=== PATIENT | female | born 1985 | race Caucasian/White ===

== ENCOUNTER 2018-08-21 02:51 | Inpatient (IN) | payer BC ==
[2018-08-21] MEDS ORDERED: Nalbuphine 20 MG/ML 1 ML Syringe IVPUSH PRN (03:11)
[2018-08-21] MEDS ORDERED: Sodium Chloride 0.9% 10 ML Syringe FLUSH PRN (03:11)
[2018-08-21] MEDS ORDERED: Ondansetron 4 MG/2 ML SDV IVPUSH PRN ×3 (03:11→19:28)
[2018-08-21] MEDS ORDERED: Oxytocin/Lactated Ringers 10 UNIT/1,000 ML BAG IV SCH (03:15)
[2018-08-21] MEDS ORDERED: Ampicillin 2 GM in Sodium Chloride 0.9% 100 ML IV ONE (04:00)
[2018-08-21] MEDS: Lactated Ringers 1,000 ML IV SCH ×4 (04:07→17:16)
--- NOTE | 2018-08-21 04:23 | PCM.LDHP ---
L&D History of Present Illness - General Date of Service: 08/21/18 Admit Problem/Dx: Patient Status Order with Admit Dx/Problem 08/21/18 03:11 Patient Status [ADT] Routine Admission Diagnosis/Problem Admission Diagnosis/Problem Source of Information: Patient History Limitations: Reports: No Limitations - History of Present Illness Introduction:: Patient is a 32 y/o at 39 1/7 wks who presents in labor. Contractions started intermittently a few days ago, but really only became patterned after midnight. No LOF. No other concerns. 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: : 2 Para: 1 LMP (Approximate): - Past Surgical History Female Surgical History: Reports: Section Musculoskeletal Surgical History: Reports: Arthroscopic Knee Social & Family History - Tobacco Use Smoking Status *Q: Never Smoker - Alcohol Use Alcohol Use History: No - Recreational Drug Use Recreational Drug Use: No H&P Review of Systems - Review of Systems: Review Of Systems: See Below General: Reports: No Symptoms Pulmonary: Reports: No Symptoms Cardiovascular: Reports: No Symptoms Gastrointestinal: Reports: No Symptoms Genitourinary: Reports: No Symptoms Musculoskeletal: Reports: No Symptoms Neurological: Reports: No Symptoms L&D Exam - Exam Exam: See Below - Vital Signs Vital Signs: Last Vital Signs Temp 37.0 C 08/21/18 03:11 Pulse 87 08/21/18 03:11 Resp 16 08/21/18 03:11 BP 127/87 08/21/18 03:11 Pulse Ox 98 08/21/18 03:11 Weight: 69.853 kg - OB Specific Contraction Intensity: Moderate Movement: Active Heart Tones: Present Heart Tones per Min: 140 Heart Rate (FHR) Variability: Moderate (6-25 bmp) Presentation: Vertex - Momin Score Momin Score Cervix Position: Posterior Momin Score Consistency: Soft Momin Score Effacement: >80% Momin Score Dilation: 1-2 cm Momin Score 's Station: -1 ,0 Momin Score Total: 8 - Exam General: Alert, Oriented, Cooperative Lungs: Clear to Auscultation, Normal Respiratory Effort Cardiovascular: Regular Rate, Regular Rhythm GI/Abdominal Exam: Soft, Non-Tender Genitourinary: Normal external exam Extremities: Normal Inspection Skin: Warm, Dry, Intact - Patient Data Lab Results Last 24 hrs: Laboratory Results - last 24 hr 08/21/18 Range/Units 03:35 WBC 11.42 H (3.98-10.04) K/mm3 RBC 4.05 (3.98-5.22) M/mm3 Hgb 12.6 (11.2-15.7) gm/L Hct 36.7 (34.1-44.9) % MCV 90.6 (79.4-94.8) fl MCH 31.1 (25.6-32.2) pg MCHC 34.3 (32.2-35.5) g/dl RDW Std Deviation 41.9 (36.4-46.3) fL Plt Count 240 (182-369) K/mm3 MPV 10.0 (9.4-12.3) fl Neut % (Auto) 87.3 H (34.0-71.1) % Lymph % (Auto) 8.2 L (19.3-51.7) % [place] % (Auto) 4.0 L (4.7-12.5) % Eos % (Auto) 0.1 L (0.7-5.8) Baso % (Auto) 0.1 (0.1-1.2) % Neut # (Auto) 9.97 H (1.56-6.13) K/mm3 Lymph # (Auto) 0.94 L (1.18-3.74) K/mm3 [place] # (Auto) 0.46 H (0.24-0.36) K/mm3 Eos # (Auto) 0.01 L (0.04-0.36) K/mm3 Baso # (Auto) 0.01 (0.01-0.08) K/mm3 Result Diagrams: 08/22/18 12:50 - Problem List (1) 39 weeks gestation of SNOMED Code(s): 81703116 ICD Code: Z3A.39 - 39 WEEKS GESTATION OF Status: Acute Current Visit: Yes (2) History of SNOMED Code(s): 969774543 ICD Code: Z98.891 - HISTORY OF UTERINE SCAR FROM PREVIOUS SURGERY Status: Acute Current Visit: Yes (3) Desires (vaginal after ) trial SNOMED Code(s): 449447690, 332587034 ICD Code: O34.219 - MATERNAL CARE FOR UNSP TYPE SCAR FROM PREVIOUS DEL Status: Acute Current Visit: Yes (4) Group 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, +RV culture, currently SNOMED Code(s): 8427927441705, 519215488, 3789067395081 ICD Code: O99.820 - STREPTOCOCCUS B CARRIER STATE COMPLICATING Status: Acute Current Visit: No Problem List Initiated/Reviewed/Updated: Yes Orders Last 24hrs: Active Orders 24 hr Category Date Time Status Patient Status [ADT] Routine ADT 08/21/18 03:11 Active Activity as Tolerated [RC] PFP Care 08/21/18 03:11 Active Communication Order [RC] ASDIRECTED Care 08/21/18 03:11 Active Heart Tones [RC] ASDIRECTED Care 08/21/18 03:12 Active Non Stress Test [RC] PER UNIT ROUTINE Care 08/21/18 03:11 Active Notify Provider [RC] PFP Care 08/21/18 03:11 Active Notify Provider [RC] PRN Care 08/21/18 03:11 Active Peripheral IV Care [RC] . DIRECTED Care 08/21/18 03:12 Active Vital Signs [RC] PER UNIT ROUTINE Care 08/21/18 03:11 Active CBC WITH AUTO DIFF [HEME] Stat Lab 08/21/18 03:35 Results RAPID PLASMA REAGIN,RPR [CHEM] Routine Lab 08/21/18 03:35 Received TYPE AND SCREEN [BBK] Stat Lab 08/21/18 03:35 Received Ampicillin 1 gm Med 08/21/18 08:00 Active Sodium Chloride 0.9% [Normal Saline] 100 ml IV Q4H Ampicillin 2 gm Med 08/21/18 04:00 Active Sodium Chloride 0.9% [Normal Saline] 100 ml IV ONETIME Lactated Ringers [Ringers, Lactated] 1,000 ml Med 08/21/18 03:15 Active IV ASDIRECTED Nalbuphine [Nubain] Med 08/21/18 03:11 Active 10 mg IVPUSH Q2H PRN Ondansetron [Zofran] Med 08/21/18 03:11 Active 4 mg IVPUSH Q4H PRN Oxytocin/Lactated Ringers [Pitocin in LR 10 Units/1,000 Med 08/21/18 03:15 Active ML] 10 unit in 1,000 ml IV .CONTINUOUS Sodium Chloride 0.9% [Saline Flush] Med 08/21/18 03:11 Active 10 ml FLUSH ASDIRECTED PRN Electronic Heart Tones Ext w TOCO [WOMSER] Oth 08/21/18 03:11 Ordered Routine Electronic Heart Tones Internal [WOMSER] Per Unit Oth 08/21/18 03:11 Ordered Routine Peripheral IV Insertion Adult [OM.PC] Routine Oth 08/21/18 03:11 Ordered Resuscitation Status Routine Resus Stat 08/21/18 03:11 Ordered Medication Orders Lactated Ringer's (Ringers, Lactated) 1,000 mls @ 100 mls/hr IV ASDIRECTED BECKY Last Admin: 08/21/18 04:07 Dose: 100 mls/hr Oxytocin/Lactated Ringer's (Pitocin In Lr 10 Units/1,000 Ml) 10 unit in 1,000 mls @ 500 mls/hr IV .CONTINUOUS BECKY Ampicillin Sodium 2 gm/ Sodium (Chloride) 100 mls @ 200 mls/hr IV ONETIME ONE Stop: 08/21/18 04:29 Last Admin: 08/21/18 04:07 Dose: 200 mls/hr Ampicillin Sodium 1 gm/ Sodium (Chloride) 100 mls @ 200 mls/hr IV Q4H BECKY Nalbuphine HCl (Nubain) 10 mg IVPUSH Q2H PRN PRN Reason: pain Ondansetron HCl (Zofran) 4 mg IVPUSH Q4H PRN PRN Reason: Nausea/Vomiting Sodium Chloride (Saline Flush) 10 ml FLUSH ASDIRECTED PRN PRN Reason: Keep Vein Open Assessment/Plan Comment:: 32 y/o at 39 1/7 wks presents in early labor. Has a history of c- section with her first due to IUGR/NRFS. Desires TOLAC * Labs * GBS positive, will start Ampicillin * Pain management per patient preference * Aware of risks/benefits of TOLAC * Anticipate
[2018-08-21] MEDS ORDERED: ePHEDrine 50 MG/ML SDV IVPUSH PRN ×3 (07:12→21:27)
[2018-08-21] MEDS ORDERED: fentaNYL 100 MCG/2 ML SDV EPIDUR PRN (07:12)
--- NOTE | 2018-08-21 07:14 | PCM.PREANE ---
Preanesthetic Assessment - Anesthesia/Transfusion/Family Hx Anesthesia History: Prior Anesthesia Without Reaction Family History of Anesthesia Reaction: No Transfusion History: No Prior Transfusion(s) Intubation History: Unknown - Physical Assessment NPO Status Date: 08/21/18 Pulse: 87 O2 Sat by Pulse Oximetry: 98 Respiratory Rate: 16 Blood Pressure: 127/87 Temperature: 37 C Vital Signs: Last Vital Signs Temp 37.0 C 08/21/18 03:11 Pulse 87 08/21/18 03:11 Resp 16 08/21/18 03:11 BP 127/87 08/21/18 03:11 Pulse Ox 98 08/21/18 03:11 Height: 1.65 m Weight: 69.853 kg ASA Class: 2 Mental Status: Alert & Oriented x3 - Lab Values: Laboratory Last Values WBC 11.42 K/mm3 (3.98-10.04) H 08/21/18 03:35 RBC 4.05 M/mm3 (3.98-5.22) 08/21/18 03:35 Hgb 12.6 gm/L (11.2-15.7) 08/21/18 03:35 Hct 36.7 % (34.1-44.9) 08/21/18 03:35 MCV 90.6 fl (79.4-94.8) 08/21/18 03:35 MCH 31.1 pg (25.6-32.2) 08/21/18 03:35 MCHC 34.3 g/dl (32.2-35.5) 08/21/18 03:35 RDW Std Deviation 41.9 fL (36.4-46.3) 08/21/18 03:35 Plt Count 240 K/mm3 (182-369) 08/21/18 03:35 MPV 10.0 fl (9.4-12.3) 08/21/18 03:35 Neut % (Auto) 87.3 % (34.0-71.1) H 08/21/18 03:35 Lymph % (Auto) 8.2 % (19.3-51.7) L 08/21/18 03:35 [place] % (Auto) 4.0 % (4.7-12.5) L 08/21/18 03:35 Eos % (Auto) 0.1 (0.7-5.8) L 08/21/18 03:35 Baso % (Auto) 0.1 % (0.1-1.2) 08/21/18 03:35 Neut # (Auto) 9.97 K/mm3 (1.56-6.13) H 08/21/18 03:35 Lymph # (Auto) 0.94 K/mm3 (1.18-3.74) L 08/21/18 03:35 [place] # (Auto) 0.46 K/mm3 (0.24-0.36) H 08/21/18 03:35 Eos # (Auto) 0.01 K/mm3 (0.04-0.36) L 08/21/18 03:35 Baso # (Auto) 0.01 K/mm3 (0.01-0.08) 08/21/18 03:35 Manual Slide Review Abnormal smear 08/21/18 03:35 Blood Type A POSITIVE 08/21/18 03:35 Gel Antibody Screen Negative 08/21/18 03:35 Above labs reviewed and noted and within acceptable ranges to proceed with epidural if desired. 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 OB/BYN History: IUGR current - Past Surgical History Female Surgical History: Reports: Section Musculoskeletal Surgical History: Reports: Arthroscopic Knee - SUBSTANCE USE Smoking Status *Q: Never Smoker Second Hand Smoke Exposure: No Recreational Drug Use History: No - HOME MEDS Home Medications: Home Meds Vits #93/Iron Fum/FA [ Formula Tablet] 1 each PO DAILY [History] Acetaminophen [Tylenol] 650 mg PO Q4H PRN #0 tablet 11/20/15 [Rx] Docusate Sodium [Colace] 100 mg PO Q12H PRN #0 cap 11/20/15 [Rx] Aspirin 81 mg PO DAILY 08/21/18 [History] - CURRENT (IN HOUSE) MEDS Current Meds: Current Medications Lactated Ringer's (Ringers, Lactated) 1,000 mls @ 100 mls/hr IV ASDIRECTED BECKY Last Admin: 08/21/18 04:07 Dose: 100 mls/hr Oxytocin/Lactated Ringer's (Pitocin In Lr 10 Units/1,000 Ml) 10 unit in 1,000 mls @ 500 mls/hr IV .CONTINUOUS BECKY Ampicillin Sodium 1 gm/ Sodium (Chloride) 100 mls @ 200 mls/hr IV Q4H BECKY Nalbuphine HCl (Nubain) 10 mg IVPUSH Q2H PRN PRN Reason: pain Ondansetron HCl (Zofran) 4 mg IVPUSH Q4H PRN PRN Reason: Nausea/Vomiting Sodium Chloride (Saline Flush) 10 ml FLUSH ASDIRECTED PRN PRN Reason: Keep Vein Open Discontinued Medications Ampicillin Sodium 2 gm/ Sodium (Chloride) 100 mls @ 200 mls/hr IV ONETIME ONE Stop: 08/21/18 04:29 Last Admin: 08/21/18 04:07 Dose: 200 mls/hr
[2018-08-21] MEDS ORDERED: Bupivacaine/fentaNYL/NS 100 ML Bag EPIDUR SCH (07:15)
[2018-08-21] MEDS: Ampicillin 1 GM in Sodium Chloride 0.9% 100 ML IV SCH ×4 (07:51→23:46)
--- NOTE | 2018-08-21 10:44 | PCM.PREANE ---
Preanesthetic Assessment - Anesthesia/Transfusion/Family Hx Anesthesia History: Prior Anesthesia Without Reaction Family History of Anesthesia Reaction: No Transfusion History: No Prior Transfusion(s) Intubation History: Unknown - Review of Systems General: No Symptoms Pulmonary: No Symptoms Cardiovascular: No Symptoms Gastrointestinal: No Symptoms Neurological: No Symptoms (motion sickness), Headache (migraines) Other: Reports: None - Physical Assessment NPO Status Date: 08/21/18 NPO Status Time: 10:00 Pulse: 87 O2 Sat by Pulse Oximetry: 98 Respiratory Rate: 16 Blood Pressure: 127/87 Temperature: 37 C Vital Signs: Last Vital Signs Temp 37 C 08/21/18 07:14 Pulse 87 08/21/18 07:14 Resp 16 08/21/18 07:14 BP 127/87 08/21/18 07:14 Pulse Ox 98 08/21/18 07:14 Height: 1.65 m Weight: 69.853 kg ASA Class: 2 Mental Status: Alert & Oriented x3 Airway Class: Mallampati = 2 Dentition: Reports: Normal Dentition, Caries Thyro-Mental Finger Breadths: 3 Mouth Opening Finger Breadths: 3 ROM/Head Extension: Full Lungs: Clear to Auscultation, Normal Respiratory Effort Cardiovascular: Regular Rate, Regular Rhythm, No Murmurs - Lab Values: Laboratory Last Values WBC 11.42 K/mm3 (3.98-10.04) H 08/21/18 03:35 RBC 4.05 M/mm3 (3.98-5.22) 08/21/18 03:35 Hgb 12.6 gm/L (11.2-15.7) 08/21/18 03:35 Hct 36.7 % (34.1-44.9) 08/21/18 03:35 MCV 90.6 fl (79.4-94.8) 08/21/18 03:35 MCH 31.1 pg (25.6-32.2) 08/21/18 03:35 MCHC 34.3 g/dl (32.2-35.5) 08/21/18 03:35 RDW Std Deviation 41.9 fL (36.4-46.3) 08/21/18 03:35 Plt Count 240 K/mm3 (182-369) 08/21/18 03:35 MPV 10.0 fl (9.4-12.3) 08/21/18 03:35 Neut % (Auto) 87.3 % (34.0-71.1) H 08/21/18 03:35 Lymph % (Auto) 8.2 % (19.3-51.7) L 08/21/18 03:35 [place] % (Auto) 4.0 % (4.7-12.5) L 08/21/18 03:35 Eos % (Auto) 0.1 (0.7-5.8) L 08/21/18 03:35 Baso % (Auto) 0.1 % (0.1-1.2) 08/21/18 03:35 Neut # (Auto) 9.97 K/mm3 (1.56-6.13) H 08/21/18 03:35 Lymph # (Auto) 0.94 K/mm3 (1.18-3.74) L 08/21/18 03:35 [place] # (Auto) 0.46 K/mm3 (0.24-0.36) H 08/21/18 03:35 Eos # (Auto) 0.01 K/mm3 (0.04-0.36) L 08/21/18 03:35 Baso # (Auto) 0.01 K/mm3 (0.01-0.08) 08/21/18 03:35 Manual Slide Review Abnormal smear 08/21/18 03:35 Blood Type A POSITIVE 08/21/18 03:35 Gel Antibody Screen Negative 08/21/18 03:35 All labs reviewed and noted and within acceptable ranges to proceed with epidural if desired. - Allergies Allergies/Adverse Reactions: Allergies Allergy/AdvReac Type Severity Reaction Status Date / Time No Known Allergies Allergy Verified 08/21/18 03:11 - Anesthesia Plan Pre-Op Medication Ordered: None - Acknowledgements Anesthesia Type Planned: Epidural Pt an Appropriate Candidate for the Planned Anesthesia: Yes Alternatives and Risks of Anesthesia Discussed w Pt/Guardian: Yes Pt/Guardian Understands and Agrees with Anesthesia Plan: Yes PreAnesthesia Questionnaire - Past Health History Medical/Surgical History: Denies Medical/Surgical History Cardiovascular History: Reports: Other (See Below) (Preeclampsia - 1st preganncy ) 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 OB/BYN History: IUGR current - Past Surgical History Female Surgical History: Reports: Section Musculoskeletal Surgical History: Reports: Arthroscopic Knee - SUBSTANCE USE Smoking Status *Q: Never Smoker Second Hand Smoke Exposure: No Recreational Drug Use History: No - HOME MEDS Home Medications: Home Meds Vits #93/Iron Fum/FA [ Formula Tablet] 1 each PO DAILY [History] Acetaminophen [Tylenol] 650 mg PO Q4H PRN #0 tablet 11/20/15 [Rx] Docusate Sodium [Colace] 100 mg PO Q12H PRN #0 cap 11/20/15 [Rx] Aspirin 81 mg PO DAILY 08/21/18 [History] - CURRENT (IN HOUSE) MEDS Current Meds: Current Medications Ephedrine Sulfate (Ephedrine Sulfate) 5 mg IVPUSH ASDIRECTED PRN PRN Reason: Hypotension Fentanyl (Sublimaze) 100 mcg EPIDUR Q3H PRN PRN Reason: Pain Fentanyl/Bupivacaine HCl (Fentanyl/Bupivacaine/Ns 2 Mcg-0.125% 100 Ml) 100 ml EPIDUR ASDIRECTED BECKY Lactated Ringer's (Ringers, Lactated) 1,000 mls @ 100 mls/hr IV ASDIRECTED BECKY Last Admin: 08/21/18 04:07 Dose: 100 mls/hr Oxytocin/Lactated Ringer's (Pitocin In Lr 10 Units/1,000 Ml) 10 unit in 1,000 mls @ 500 mls/hr IV .CONTINUOUS [facility] Ampicillin Sodium 1 gm/ Sodium (Chloride) 100 mls @ 200 mls/hr IV Q4H [facility] Last Admin: 08/21/18 07:51 Dose: 200 mls/hr Nalbuphine HCl (Nubain) 10 mg IVPUSH Q2H PRN PRN Reason: pain Ondansetron HCl (Zofran) 4 mg IVPUSH Q4H PRN PRN Reason: Nausea/Vomiting Ondansetron HCl (Zofran) 4 mg IVPUSH ONETIME PRN PRN Reason: Nausea/Vomiting Sodium Chloride (Saline Flush) 10 ml FLUSH ASDIRECTED PRN PRN Reason: Keep Vein Open Discontinued Medications Ampicillin Sodium 2 gm/ Sodium (Chloride) 100 mls @ 200 mls/hr IV ONETIME ONE Stop: 08/21/18 04:29 Last Admin: 08/21/18 04:07 Dose: 200 mls/hr
[2018-08-21] MEDS ORDERED: fentaNYL/Bupivacaine-NS 2 MCG/ML-0.125%/PF 100 ML Bag EPIDUR SCH (15:15)
--- NOTE | 2018-08-21 17:10 | PCM.PNLD ---
Labor Progress Note - VS & Meds Vital Signs: Last Vital Signs Temp 37 C 08/21/18 10:49 Pulse 87 08/21/18 10:49 Resp 16 08/21/18 10:49 BP 127/87 08/21/18 10:49 Pulse Ox 98 08/21/18 10:49 Active Medications: Current Medications Ephedrine Sulfate (Ephedrine Sulfate) 5 mg IVPUSH ASDIRECTED PRN PRN Reason: Hypotension Fentanyl (Sublimaze) 100 mcg EPIDUR Q3H PRN PRN Reason: Pain Last Admin: 08/21/18 15:43 Dose: 100 mcg Fentanyl/Bupivacaine HCl (Mflheulb-Rgqrg-Al 2 Mcg/Ml-0.125%) 100 ml EPIDUR ASDIRECTED BECKY Last Admin: 08/21/18 15:45 Dose: 100 ml Lactated Ringer's (Ringers, Lactated) 1,000 mls @ 100 mls/hr IV ASDIRECTED BECKY Last Admin: 08/21/18 16:04 Dose: 100 mls/hr Oxytocin/Lactated Ringer's (Pitocin In Lr 10 Units/1,000 Ml) 10 unit in 1,000 mls @ 500 mls/hr IV .CONTINUOUS [facility] Ampicillin Sodium 1 gm/ Sodium (Chloride) 100 mls @ 200 mls/hr IV Q4H [facility] Last Admin: 08/21/18 16:02 Dose: 200 mls/hr Nalbuphine HCl (Nubain) 10 mg IVPUSH Q2H PRN PRN Reason: pain Ondansetron HCl (Zofran) 4 mg IVPUSH Q4H PRN PRN Reason: Nausea/Vomiting Ondansetron HCl (Zofran) 4 mg IVPUSH ONETIME PRN PRN Reason: Nausea/Vomiting Sodium Chloride (Saline Flush) 10 ml FLUSH ASDIRECTED PRN PRN Reason: Keep Vein Open Discontinued Medications Fentanyl/Bupivacaine HCl (Fentanyl/Bupivacaine/Ns 2 Mcg-0.125% 100 Ml) 100 ml EPIDUR ASDIRECTED [facility] Ampicillin Sodium 2 gm/ Sodium (Chloride) 100 mls @ 200 mls/hr IV ONETIME ONE Stop: 08/21/18 04:29 Last Admin: 08/21/18 04:07 Dose: 200 mls/hr - Uterine Contractions Uterine Monitoring Mode: External [place] Contraction Intensity: Moderate to Strong - Monitoring Monitor Mode: External Ultrasound Heart Rate (FHR) Baseline: 130 Heart Rate (FHR) Variability: Moderate (6-25 bmp) Accelerations: Present, 15x15 Decelerations: Late (isolated after epidural) Strip Review: Category II - Vaginal Exam Dilation (cm): 5-6 Effacement (Percent): 80 Station: 0 Cervical Position: Midposition - Labor Progress (Free Text) Labor Progress: Doing well. Just received epidural. Feeling comfortable. Has continued to make change. Attempted to AROM, however, no BOW noted on exam
--- NOTE | 2018-08-21 17:13 | PCM.PNLD ---
Labor Progress Note - VS & Meds Vital Signs: Last Vital Signs Temp 37 C 08/21/18 10:49 Pulse 87 08/21/18 10:49 Resp 16 08/21/18 10:49 BP 127/87 08/21/18 10:49 Pulse Ox 98 08/21/18 10:49 Active Medications: Current Medications Ephedrine Sulfate (Ephedrine Sulfate) 5 mg IVPUSH ASDIRECTED PRN PRN Reason: Hypotension Fentanyl (Sublimaze) 100 mcg EPIDUR Q3H PRN PRN Reason: Pain Last Admin: 08/21/18 15:43 Dose: 100 mcg Fentanyl/Bupivacaine HCl (Blsdvkaz-Xseax-Gv 2 Mcg/Ml-0.125%) 100 ml EPIDUR ASDIRECTED BECKY Last Admin: 08/21/18 15:45 Dose: 100 ml Lactated Ringer's (Ringers, Lactated) 1,000 mls @ 100 mls/hr IV ASDIRECTED BECKY Last Admin: 08/21/18 16:04 Dose: 100 mls/hr Oxytocin/Lactated Ringer's (Pitocin In Lr 10 Units/1,000 Ml) 10 unit in 1,000 mls @ 500 mls/hr IV .CONTINUOUS [facility] Ampicillin Sodium 1 gm/ Sodium (Chloride) 100 mls @ 200 mls/hr IV Q4H [facility] Last Admin: 08/21/18 16:02 Dose: 200 mls/hr Nalbuphine HCl (Nubain) 10 mg IVPUSH Q2H PRN PRN Reason: pain Ondansetron HCl (Zofran) 4 mg IVPUSH Q4H PRN PRN Reason: Nausea/Vomiting Ondansetron HCl (Zofran) 4 mg IVPUSH ONETIME PRN PRN Reason: Nausea/Vomiting Sodium Chloride (Saline Flush) 10 ml FLUSH ASDIRECTED PRN PRN Reason: Keep Vein Open Discontinued Medications Fentanyl/Bupivacaine HCl (Fentanyl/Bupivacaine/Ns 2 Mcg-0.125% 100 Ml) 100 ml EPIDUR ASDIRECTED [facility] Ampicillin Sodium 2 gm/ Sodium (Chloride) 100 mls @ 200 mls/hr IV ONETIME ONE Stop: 08/21/18 04:29 Last Admin: 08/21/18 04:07 Dose: 200 mls/hr - Uterine Contractions Uterine Monitoring Mode: External [place] Contraction Intensity: Moderate to Strong - Monitoring Monitor Mode: External Ultrasound Heart Rate (FHR) Baseline: 140 Heart Rate (FHR) Variability: Moderate (6-25 bmp) Accelerations: Present, 15x15 Decelerations: None Strip Review: Category I - Vaginal Exam Dilation (cm): 4 Effacement (Percent): 80 Station: 0 Cervical Position: Posterior - Labor Progress (Free Text) Labor Progress: Doing well. Difficult to assess cervix due to very posterior position and patient discomfort. reviewed option for AROM, but would prefer to wait. Will assess again in a few hours
--- NOTE | 2018-08-21 18:01 | PCM.PNLD ---
Labor Progress Note - VS & Meds Vital Signs: Last Vital Signs Temp 37 C 08/21/18 10:49 Pulse 87 08/21/18 10:49 Resp 16 08/21/18 10:49 BP 127/87 08/21/18 10:49 Pulse Ox 98 08/21/18 10:49 Active Medications: Current Medications Ephedrine Sulfate (Ephedrine Sulfate) 5 mg IVPUSH ASDIRECTED PRN PRN Reason: Hypotension Fentanyl (Sublimaze) 100 mcg EPIDUR Q3H PRN PRN Reason: Pain Last Admin: 08/21/18 15:43 Dose: 100 mcg Fentanyl/Bupivacaine HCl (Jdmxlios-Kykde-Mk 2 Mcg/Ml-0.125%) 100 ml EPIDUR ASDIRECTED BECKY Last Admin: 08/21/18 15:45 Dose: 100 ml Lactated Ringer's (Ringers, Lactated) 1,000 mls @ 100 mls/hr IV ASDIRECTED BECKY Last Admin: 08/21/18 17:16 Dose: 100 mls/hr Oxytocin/Lactated Ringer's (Pitocin In Lr 10 Units/1,000 Ml) 10 unit in 1,000 mls @ 500 mls/hr IV .CONTINUOUS [facility] Ampicillin Sodium 1 gm/ Sodium (Chloride) 100 mls @ 200 mls/hr IV Q4H [facility] Last Admin: 08/21/18 16:02 Dose: 200 mls/hr Nalbuphine HCl (Nubain) 10 mg IVPUSH Q2H PRN PRN Reason: pain Ondansetron HCl (Zofran) 4 mg IVPUSH Q4H PRN PRN Reason: Nausea/Vomiting Ondansetron HCl (Zofran) 4 mg IVPUSH ONETIME PRN PRN Reason: Nausea/Vomiting Sodium Chloride (Saline Flush) 10 ml FLUSH ASDIRECTED PRN PRN Reason: Keep Vein Open Discontinued Medications Fentanyl/Bupivacaine HCl (Fentanyl/Bupivacaine/Ns 2 Mcg-0.125% 100 Ml) 100 ml EPIDUR ASDIRECTED [facility] Ampicillin Sodium 2 gm/ Sodium (Chloride) 100 mls @ 200 mls/hr IV ONETIME ONE Stop: 08/21/18 04:29 Last Admin: 08/21/18 04:07 Dose: 200 mls/hr - Uterine Contractions Uterine Monitoring Mode: External [place] Contraction Intensity: Moderate to Strong - Monitoring Monitor Mode: External Ultrasound Heart Rate (FHR) Baseline: 140 Heart Rate (FHR) Variability: Moderate (6-25 bmp) Accelerations: Present, 15x15 Decelerations: Prolonged (>2x10 min) (Patient with prolonged deceleration at 1744 down to 70's for 90 seconds ) Strip Review: Category III - Vaginal Exam Dilation (cm): 7-8 Effacement (Percent): 80 Station: 0 Cervical Position: Midposition - Labor Progress (Free Text) Labor Progress: heart rate recovered with position changes/IVF. Did make change from 5-6 to 7-8. Since FHR now reassuring will continue to monitor closely
[2018-08-21] MEDS ORDERED: Clindamycin Phosphate 900 MG in Sodium Chloride 0.9% 100 ML IV ONE ×2 (18:27→18:41)
[2018-08-21] MEDS ORDERED: Metoclopramide 10 MG/2 ML SDV IVPUSH ONE (18:30)
[2018-08-21] MEDS ORDERED: Citric Acid/Sodium Citrate Solution 30 ML Cup PO ONE (18:30)
--- NOTE | 2018-08-21 18:30 | PCM.SN ---
- Free Text/Narrative Note: At 1800 patient with shift up in baseline. Temperature now 100.8. Reviewed concerns for potential loss of station, chorioamnionitis. Reviewed we will need to start treating infection. Other than baseline in the 180's status reassuring with moderate variability. Reviewed different options of management and ultimately patient and would agree to a . Team notified Megan Oconnor MD
--- NOTE | 2018-08-21 18:32 | PCM.OPNOTE ---
- General Post-Op/Procedure Note Date of Surgery/Procedure: 08/21/18 Operative Procedure(s): Repeat - incision site ended up being high transverse with small, 2 cm, "T" extension Findings: Concern for possible uterine window, however, was area of brusied/elevated serosa. Thinning of lower uterine segment noted. Normal appearance of the ovaries and fallopian tubes. Baby Girl in a vertex presentation. APGARS of 8 & 9. Weight of 7 lbs 13 oz. Pre Op Diagnosis: 39 weeks of gestation. Attempted TOLAC. Chorioamniotis Post-Op Diagnosis: Same Anesthesia Technique: Epidural Primary Surgeon: Megan Oconnor Secondary Surgeon: Xiomara Franco Anesthesia Provider: Larisa Segura Reason Equity Analyst Was Necessary: No dedicated 1st assist. Speed/safety of procedure. Pathology: Cord gas segment obtained. Cord blood obtained. Placenta sent to pathology. Fluid Replacement, Intraop: 1,050 Output, Urine Amount: 125 EBL in mLs: 1,200 Complications: None Condition: Good Free Text/Narrative:: The risks, benefits, indications, potential complications, and alternatives were explained to the patient and informed consent obtained. After induction of anesthesia, the patient was placed in a supine position and then draped and prepped in the usual sterile manner. A Pfannenstiel incision was made and carried down through the subcutaneous tissue to the fascia. Fascial incision was made and extended transversely. The fascia was from the underlying rectus tissue superiorly and inferiorly. The peritoneum was identified and entered. Peritoneal incision was extended longitudinally. The utero-vesical peritoneal reflection was incised transversely and the bladder flap was bluntly freed from the lower uterine segment. There was thought to be an area of thinning/uterine window noted on the anterior surface of the uterus based on elevation of serosa with dark coloration underneath it. However. this dark discoloration ended up be more of a bruised/edematous layer of serosa. Unfortunately the muscle was thicker in this area and it was noted that uterine incision ended up being in a high transverse location. Baby noted to be straight OP. head delivered through hysterotomy, but there was difficulty delivering the shoulders. A small, ~2 cm, "T" incision was made superiorly. A baby girl was then able to be successfully delivered with APGARS as above. After the umbilical cord was clamped and cut a segment of cord was obtained for a cord gas. Cord blood then obtained. The placenta was removed intact and appeared normal. The uterus was exteriorized and cleared of clots. The uterine outline, tubes and ovaries appeared normal. The "T" portion of the uterine incision was closed with several layers of running 0 vicryl. The serosa was then closed with a 4-0 monocryl placed in a baseball stitch. Next, the horizontal portion of the incision was closed with running locked sutures of 0 Vicryl. Hemostasis was obtained by a second imbricating layer of 0 vicryl. The uterus was then placed back into the abdomen. The infracolic gutters were cleared of blood clots. The muscle around the hysterotomy was slightly abraided and so Ayaan seal was placed along the length of the hysterotomy. The fascia was then reapproximated with running sutures of 0 Vicryl. The sucutaneous tissue was irrigated with sterile warm normal saline, hemostasis obtained with cautery. This layer was closed with a running 0 vicryl. The skin was reapproximated with running Subcuticular 4-0 monocryl sutures. Instrument, sponge, and needle counts were correct prior the abdominal closure and at the conclusion of the case.
[2018-08-21] MEDS ORDERED: Metoclopramide 10 MG/2 ML SDV ONE (18:40)
[2018-08-21] MEDS ORDERED: fentaNYL 100 MCG/2 ML SDV ONE (18:40)
[2018-08-21] MEDS ORDERED: Phenylephrine/Normal Saline 100 MCG/ML 10 ML Syringe ONE (18:40)
[2018-08-21] MEDS ORDERED: Citric Acid/Sodium Citrate Solution 30 ML Cup ONE (18:40)
[2018-08-21] MEDS ORDERED: Ondansetron 4 MG/2 ML SDV ONE (18:40)
[2018-08-21] MEDS ORDERED: Lidocaine 2% with EPINEPHrine 1:200,000 20 ML SDV ONE (18:40)
[2018-08-21] MEDS ORDERED: Lactated Ringers 2,000 ML ONE (18:40)
[2018-08-21] MEDS ORDERED: Oxytocin 10 Units/1 ML SDV ONE (18:40)
[2018-08-21] MEDS ORDERED: Ketorolac 30 MG/ML SDV ONE (18:40)
[2018-08-21] MEDS ORDERED: ceFAZolin 1 GM Vial ONE (18:40)
[2018-08-21] MEDS ORDERED: Morphine PF 1 MG/ML Amp ONE (18:41)
[2018-08-21] MEDS ORDERED: Haloperidol Lactate 5 MG/ML SDV IVPUSH ONE (19:28)
[2018-08-21] MEDS ORDERED: fentaNYL 100 MCG/2 ML SDV IVPUSH PRN (19:28)
[2018-08-21] MEDS ORDERED: diphenhydrAMINE 50 MG/ML SDV IVPUSH PRN ×2 (19:28→21:27)
[2018-08-21] MEDS ORDERED: HYDROmorphone 1 MG/ML Syringe IVPUSH PRN (19:28)
[2018-08-21] MEDS ORDERED: Scopolamine 1.5 MG Transdermal Patch TRDERM PRN (19:29)
[2018-08-21] MEDS ORDERED: Phenylephrine 1 MG in Sodium Chloride 0.9% 10 ML IV SCH (19:30)
[2018-08-21] MEDS ORDERED: Meperidine PF 50 MG/ML Syringe IVPUSH ONE (19:54)
--- NOTE | 2018-08-21 20:16 | PCM.POSTAN ---
POST ANESTHESIA ASSESSMENT - MENTAL STATUS Mental Status: Alert - VITAL SIGNS Pulse Rate: 85 SaO2: 96 Resp Rate: 11 Blood Pressure: 92/51 Temperature: 36.9 C - RESPIRATORY Respiratory Status: Respiratory Rate WNL, Airway Patent, O2 Saturation Stable - CARDIOVASCULAR CV Status: Pulse Rate WNL, Blood Pressure Stable - GASTROINTESTINAL GI Status: No Symptoms - POST OP HYDRATION Hydration Status: Adequate & Stable
[2018-08-21] MEDS ORDERED: Ondansetron 4 MG/2 ML SDV IV PRN (21:27)
[2018-08-21] MEDS ORDERED: Lanolin 100% Cream 7 GM Tube TOP PRN (21:27)
[2018-08-21] MEDS ORDERED: Dextrose 5%-Lactated Ringers 1,000 ML IV SCH (21:27)
[2018-08-21] MEDS ORDERED: Docusate Sodium 100 MG Cap PO PRN (21:27)
[2018-08-21] MEDS ORDERED: Acetaminophen/oxyCODONE 325-5 MG Tab PO PRN (21:27)
[2018-08-21] MEDS ORDERED: Bupivacaine 0.25% 10 ML SDV ONE (22:00)
[2018-08-22] MEDS: Ampicillin 2 GM in Sodium Chloride 0.9% 100 ML IV SCH ×4 (00:05→17:54)
[2018-08-22] MEDS: Ketorolac 30 MG/ML SDV IVPUSH SCH ×3 (01:32→13:46)
[2018-08-22] MEDS ORDERED: Clindamycin Phosphate 900 MG in Sodium Chloride 0.9% 100 ML IV SCH ×4 (03:00→03:30)
[2018-08-22] MEDS: Clindamycin Phosphate 900 MG in Sodium Chloride 0.9% 100 ML IV SCH ×2 (03:27→11:06)
--- NOTE | 2018-08-22 08:12 | PCM48HPAN ---
Post Anesthesia Note - EVALUATION WITHIN 48HRS OF ANESTHETIC Vital Signs in Normal Range: Yes Patient Participated in Evaluation: Yes Respiratory Function Stable: Yes Airway Patent: Yes Cardiovascular Function Stable: Yes Hydration Status Stable: Yes Pain Control Satisfactory: Yes Nausea and Vomiting Control Satisfactory: Yes Mental Status Recovered: Yes (says she is a little itchy but fine) Pulse Rate: 94 Resp Rate: 14 Temperature: 98.1 F Blood Pressure: 100/64
--- NOTE | 2018-08-22 14:55 | PCM.PNPP ---
- General Info Date of Service: 08/22/18 Functional Status: Reports: Pain Controlled, Tolerating Diet, Ambulating - Review of Systems General: Reports: No Symptoms Pulmonary: Reports: No Symptoms Cardiovascular: Reports: No Symptoms Gastrointestinal: Reports: Abdominal Pain (managed with medications ) Genitourinary: Reports: No Symptoms Musculoskeletal: Reports: No Symptoms Neurological: Reports: No Symptoms - Patient Data Vital Signs - Most Recent: Last Vital Signs Temp 36.6 C 08/22/18 12:06 Pulse 88 08/22/18 12:06 Resp 18 08/22/18 13:00 BP 104/74 08/22/18 12:06 Pulse Ox 99 08/22/18 13:00 Weight - Most Recent: 69.853 kg I&O - Last 24 Hours: Intake & Output 08/21/18 08/22/18 08/22/18 22:59 06:59 14:59 Intake Total 2980 1300 1410 Output Total 175 1950 2875 Balance 8305 -370 -9520 Lab Results - Last 24 Hours: Laboratory Results - last 24 hr 08/21/18 08/21/18 08/21/18 Range/Units 03:35 19:20 19:22 WBC (3.98-10.04) K/mm3 RBC (3.98-5.22) M/mm3 Hgb (11.2-15.7) gm/L Hct (34.1-44.9) % MCV (79.4-94.8) fl MCH (25.6-32.2) pg MCHC (32.2-35.5) g/dl RDW Std Deviation (36.4-46.3) fL Plt Count (182-369) K/mm3 MPV (9.4-12.3) fl Cord ABG pH 7.34 H (7.22-7.32) Cord ABG pCO2 32.6 L (42-58) Cord ABG pO2 131 H (12-24) Cord ABG HCO3 17.0 L (24-26) Cord ABG Base Excess -7.4 L (-5.5-0.1) Cord VBG pH 7.32 (7.28-7.40) Cord VBG pCO2 45.1 H (32.8-38.6) Cord VBG pO2 15 L (28-32) Cord VBG HCO3 23.3 (19-24) Cord VBG Base Excess -3.5 (-4.4-0.4) RPR Non-reactive (NONREACTIVE) 08/22/18 Range/Units 12:50 WBC 10.99 H (3.98-10.04) K/mm3 RBC 3.17 L (3.98-5.22) M/mm3 Hgb 9.5 L (11.2-15.7) gm/L Hct 29.2 L (34.1-44.9) % MCV 92.1 (79.4-94.8) fl MCH 30.0 (25.6-32.2) pg MCHC 32.5 (32.2-35.5) g/dl RDW Std Deviation 42.8 (36.4-46.3) fL Plt Count 197 (182-369) K/mm3 MPV 9.7 (9.4-12.3) fl Cord ABG pH (7.22-7.32) Cord ABG pCO2 (42-58) Cord ABG pO2 (12-24) Cord ABG HCO3 (24-26) Cord ABG Base Excess (-5.5-0.1) Cord VBG pH (7.28-7.40) Cord VBG pCO2 (32.8-38.6) Cord VBG pO2 (28-32) Cord VBG HCO3 (19-24) Cord VBG Base Excess (-4.4-0.4) RPR (NONREACTIVE) Med Orders - Current: Current Medications Diphenhydramine HCl (Benadryl) 25 mg IVPUSH Q6H PRN PRN Reason: Itching or Nausea Docusate Sodium (Colace) 100 mg PO Q12H PRN PRN Reason: Constipation Emollient Ointment (Lansinoh Hpa) 0 gm TOP ASDIRECTED PRN PRN Reason: Sore Nipples Ephedrine Sulfate (Ephedrine Sulfate) 5 mg IVPUSH SEECOMMENT PRN PRN Reason: Other Fentanyl (Sublimaze) 50 mcg IVPUSH Q5M PRN PRN Reason: Pain Hydromorphone HCl (Dilaudid) 0.5 mg IVPUSH Q15M PRN PRN Reason: Pain (severe 7-10) Phenylephrine HCl 1 mg/ Sodium (Chloride) 10.1 mls @ 1 mls/sec IV TITRATE [facility]; Protocol Ampicillin Sodium 2 gm/ Sodium (Chloride) 100 mls @ 200 mls/hr IV Q6H [facility] Last Admin: 08/22/18 12:08 Dose: 200 mls/hr Gentamicin Sulfate 350 mg/ (Sodium Chloride) 108.75 mls @ 200 mls/hr IV Q24H [facility] Stop: 08/22/18 19:33 Clindamycin Phosphate 900 mg/ (Premix) 50 mls @ 100 mls/hr IV Q8H [facility] Ibuprofen (Motrin) 600 mg PO Q6H PRN PRN Reason: mild pain or fever Ondansetron HCl (Zofran) 4 mg IVPUSH ONETIME PRN PRN Reason: Nausea/Vomiting Ondansetron HCl (Zofran) 4 mg IV Q8H PRN PRN Reason: Nausea/Vomiting Oxycodone/Acetaminophen (Percocet 325-5 Mg) 2 tab PO Q4H PRN PRN Reason: Pain (moderate 4-6) Scopolamine (Transderm-Scop) 1.5 mg TRDERM ONETIME PRN PRN Reason: PONV Discontinued Medications Cefazolin Sodium (Ancef) Confirm Administered Dose 2 gm .ROUTE .STK-MED ONE Stop: 08/21/18 18:41 Citric Acid/Sodium Citrate (Bicitra Solution) 30 ml PO ONETIME ONE Stop: 08/21/18 18:31 Last Admin: 08/21/18 18:43 Dose: 30 ml Citric Acid/Sodium Citrate (Bicitra Solution) Confirm Administered Dose 30 ml .ROUTE .STK-MED ONE Stop: 08/21/18 18:41 Last Admin: 08/21/18 19:52 Dose: Not Given Diphenhydramine HCl (Benadryl) 25 mg IVPUSH Q6H PRN PRN Reason: pruritis Ephedrine Sulfate (Ephedrine Sulfate) 5 mg IVPUSH ASDIRECTED PRN PRN Reason: Hypotension Ephedrine Sulfate (Ephedrine Sulfate) 5 mg IVPUSH ASDIRECTED PRN PRN Reason: Hypotension Fentanyl (Sublimaze) 100 mcg EPIDUR Q3H PRN PRN Reason: Pain Last Admin: 08/21/18 15:43 Dose: 100 mcg Fentanyl (Sublimaze) Confirm Administered Dose 100 mcg .ROUTE .STK-MED ONE Stop: 08/21/18 18:41 Fentanyl/Bupivacaine HCl (Fentanyl/Bupivacaine/Ns 2 Mcg-0.125% 100 Ml) 100 ml EPIDUR ASDIRECTED [facility] Fentanyl/Bupivacaine HCl (Hxpvaana-Klxni-Bp 2 Mcg/Ml-0.125%) 100 ml EPIDUR ASDIRECTED [facility] Last Admin: 08/21/18 15:45 Dose: 100 ml Haloperidol Lactate (Haldol) 1 mg IVPUSH ONETIME ONE Stop: 08/21/18 19:29 Last Admin: 08/21/18 23:46 Dose: Not Given Lactated Ringer's (Ringers, Lactated) 1,000 mls @ 100 mls/hr IV ASDIRECTED [facility] Last Admin: 08/21/18 17:16 Dose: 100 mls/hr Oxytocin/Lactated Ringer's (Pitocin In Lr 10 Units/1,000 Ml) 10 unit in 1,000 mls @ 500 mls/hr IV .CONTINUOUS [facility] Ampicillin Sodium 2 gm/ Sodium (Chloride) 100 mls @ 200 mls/hr IV ONETIME ONE Stop: 08/21/18 04:29 Last Admin: 08/21/18 04:07 Dose: 200 mls/hr Ampicillin Sodium 1 gm/ Sodium (Chloride) 100 mls @ 200 mls/hr IV Q4H [facility] Last Admin: 08/21/18 23:46 Dose: Not Given Gentamicin Sulfate 350 mg/ (Sodium Chloride) 108.75 mls @ 200 mls/hr IV ONETIME ONE Stop: 08/21/18 18:54 Last Admin: 08/21/18 19:46 Dose: 200 mls/hr Clindamycin Phosphate 900 mg/ (Sodium Chloride) 106 mls @ 100 mls/hr IV ONETIME ONE Stop: 08/21/18 19:30 Last Admin: 08/21/18 18:45 Dose: 100 mls/hr Clindamycin Phosphate 900 mg/ (Sodium Chloride) 106 mls @ 100 mls/hr IV ONETIME ONE Stop: 08/21/18 19:30 Last Admin: 08/21/18 19:56 Dose: Not Given Lactated Ringer's (Ringers, Lactated) Confirm Administered Dose 2,000 mls @ as directed .ROUTE .STK-MED ONE Stop: 08/21/18 18:41 Dextrose/Lactated Ringer's (Dextrose 5%-Lactated Ringers) 1,000 mls @ 125 mls/ hr IV ASDIRECTED [facility] Stop: 08/22/18 05:26 Last Admin: 08/21/18 21:45 Dose: 125 mls/hr Clindamycin Phosphate 900 mg/ (Sodium Chloride) 106 mls @ 100 mls/hr IV Q8H [facility] Last Admin: 08/22/18 04:40 Dose: Not Given Clindamycin Phosphate 900 mg/ (Sodium Chloride) 106 mls @ 106 mls/hr IV Q8H [facility] Last Admin: 08/22/18 04:41 Dose: Not Given Clindamycin Phosphate 900 mg/ (Sodium Chloride) 106 mls @ 100 mls/hr IV Q8H [facility] Clindamycin Phosphate 900 mg/ (Sodium Chloride) 106 mls @ 100 mls/hr IV Q8H [facility] Last Admin: 08/22/18 11:06 Dose: 100 mls/hr Ketorolac Tromethamine (Toradol) Confirm Administered Dose 30 mg .ROUTE .STK- MED ONE Stop: 08/21/18 18:41 Ketorolac Tromethamine (Toradol) 30 mg IVPUSH Q6H [facility] Stop: 08/22/18 13:31 Last Admin: 08/22/18 13:46 Dose: 30 mg Lidocaine/Epinephrine (Xylocaine-Mpf 2%-Epi 1:200,000) Confirm Administered Dose 20 ml .ROUTE .STK-MED ONE Stop: 08/21/18 18:41 Meperidine HCl (Demerol) 25 mg IVPUSH ONETIME ONE Stop: 08/21/18 19:55 Last Admin: 08/21/18 20:17 Dose: 25 mg Metoclopramide HCl (Reglan) 10 mg IVPUSH ONETIME ONE Stop: 08/21/18 18:31 Last Admin: 08/21/18 18:43 Dose: 10 mg Metoclopramide HCl (Reglan) Confirm Administered Dose 10 mg .ROUTE .STK-MED ONE Stop: 08/21/18 18:41 Last Admin: 08/21/18 19:52 Dose: Not Given Morphine Sulfate (Duramorph Pf) Confirm Administered Dose 1 mg .ROUTE .STK-MED ONE Stop: 08/21/18 18:42 Nalbuphine HCl (Nubain) 10 mg IVPUSH Q2H PRN PRN Reason: pain Ondansetron HCl (Zofran) 4 mg IVPUSH Q4H PRN PRN Reason: Nausea/Vomiting Ondansetron HCl (Zofran) 4 mg IVPUSH ONETIME PRN PRN Reason: Nausea/Vomiting Ondansetron HCl (Zofran) Confirm Administered Dose 4 mg .ROUTE .STK-MED ONE Stop: 08/21/18 18:41 Oxytocin (Pitocin) Confirm Administered Dose 10 unit .ROUTE .STK-MED ONE Stop: 08/21/18 18:41 Phenylephrine HCl (Phenylephrine In Ns 100 Mcg/Ml) Confirm Administered Dose 1 mg .ROUTE .STK-MED ONE Stop: 08/21/18 18:41 Sodium Chloride (Saline Flush) 10 ml FLUSH ASDIRECTED PRN PRN Reason: Keep Vein Open - Infant Interaction Disposition, : [place] in Room with Family Infant Interaction: Holding Infant Infant Feeding: Attempted ; Nursed Fair/Poor Support Person: - Recovery Exam Fundal Tone: Firm Fundal Level: 1 Fingerbreadths Below Umbilicus Fundal Placement: Midline Lochia Amount: Small, Moderate Lochia Color: Rubra/Red Perineum Description: Edematous Episiotomy/Laceration: None Bladder Status: Indwelling Catheter in Place Urinary Elimination: Other (see below) Other Urinary Elimination, : catheter removed at 080 - Exam General: Alert, Oriented, Cooperative Lungs: Clear to Auscultation, Normal Respiratory Effort Cardiovascular: Regular Rate, Regular Rhythm GI/Abdominal Exam: Soft, Tender (appropriate post op) Extremities: Normal Inspection Skin: Warm, Dry, Intact Wound/Incisions: Dressing Dry and Intact - Problem List & Annotations (1) 39 weeks gestation of SNOMED Code(s): 20816708 Code(s): Z3A.39 - 39 WEEKS GESTATION OF Status: Acute Current Visit: Yes (2) History of SNOMED Code(s): 156065457 Code(s): Z98.891 - HISTORY OF UTERINE SCAR FROM PREVIOUS SURGERY Status: Acute Current Visit: Yes (3) Desires (vaginal after ) trial SNOMED Code(s): 558395156, 282750598 Code(s): O34.219 - MATERNAL CARE FOR UNSP TYPE SCAR FROM PREVIOUS DEL Status: Acute Current Visit: Yes (4) Group 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, +RV culture, currently SNOMED Code(s): 1192918125043, 705813627, 3254442585504 Code(s): O99.820 - STREPTOCOCCUS B CARRIER STATE COMPLICATING Status: Acute Current Visit: No (5) Chorioamnionitis SNOMED Code(s): 59359007 Code(s): O41.1290 - CHORIOAMNIONITIS, UNSP TRIMESTER, NOT APPLICABLE OR UNSP Status: Acute Current Visit: Yes (6) S/P section SNOMED Code(s): 903860853, 600750013 Code(s): Z98.891 - HISTORY OF UTERINE SCAR FROM PREVIOUS SURGERY Status: Acute Current Visit: Yes - Problem List Review Problem List Initiated/Reviewed/Updated: Yes - My Orders Last 24 Hours: My Active Orders 08/21/18 18:30 Procedure Site Prep Instruct [RC] ASDIRECTED Verify Patient Consent Obtain [RC] PER UNIT ROUTINE 08/21/18 21:27 Activity as Tolerated [RC] .Routine Antiembolic Devices [RC] PER UNIT ROUTINE Communication Order [RC] PER UNIT ROUTINE Intake and Output [RC] Q4HR May Shower [RC] PER UNIT ROUTINE Notify Provider Intake and Out [RC] ASDIRECTED RT Incentive Spirometry [RC] Q2HWA Acetaminophen/oxyCODONE [Percocet 325-5 MG] 2 tab PO Q4H PRN Docusate Sodium [Colace] 100 mg PO Q12H PRN Lanolin [Lansinoh HPA] See Dose Instructions TOP ASDIRECTED PRN Ondansetron [Zofran] 4 mg IV Q8H PRN diphenhydrAMINE [Benadryl] 25 mg IVPUSH Q6H PRN ePHEDrine [ePHEDrine sulfate] 5 mg IVPUSH SEECOMMENT PRN Assess Lochia [WOMSER] Per Unit Routine Assess Uterine Involution [WOMSER] Per Unit Routine Breast Pump [WOMSER] Per Unit Routine Peripheral IV Discontinue [OM.PC] Routine Sequential Compression Device [OM.PC] Per Unit Routine 08/21/18 Dinner Regular Diet [DIET] 08/22/18 00:00 Ampicillin 2 gm Sodium Chloride 0.9% [Normal Saline] 100 ml IV Q6H 08/22/18 19:00 Clindamycin Phosphate in D5W [Cleocin in D5W] 900 mg Premix Bag 1 bag IV Q8H Gentamicin 350 mg Sodium Chloride 0.9% [Normal Saline] 100 ml IV Q24H 08/22/18 20:00 Ibuprofen [Motrin] 600 mg PO Q6H PRN 08/22/18 20:29 Urinary Catheter Removal [RC] Per Unit Routine - Assessment Assessment:: 32 y/o G2 now P2002 POD#1 from repeat (high transverse) due to chorioamniotitis/NRFS - Plan Plan:: S/p RCS * Routine cares * CBC today * Cote out today * Encourage breast feeding * Discharge home in 1-2 days
[2018-08-22] MEDS ORDERED: Clindamycin Phosphate in D5W 900 MG in Premix Bag 1 BAG IV SCH ×2 (19:00)
[2018-08-22] MEDS: Ibuprofen 600 MG Tab PO PRN (22:02)
[2018-08-23] MEDS: Ibuprofen 600 MG Tab PO PRN ×4 (05:47→23:51)
--- NOTE | 2018-08-23 05:59 | PCM.PNPP ---
- General Info Date of Service: 08/23/18 Functional Status: Reports: Pain Controlled, Tolerating Diet, Ambulating, Urinating - Review of Systems General: Reports: No Symptoms Pulmonary: Reports: No Symptoms Cardiovascular: Reports: No Symptoms Gastrointestinal: Reports: Abdominal Pain (managed by medications ) Genitourinary: Reports: No Symptoms Musculoskeletal: Reports: No Symptoms Neurological: Reports: No Symptoms - Patient Data Vital Signs - Most Recent: Last Vital Signs Temp 36.6 C 08/22/18 16:17 Pulse 81 08/22/18 16:17 Resp 16 08/22/18 19:00 BP 106/70 08/22/18 16:17 Pulse Ox 97 08/22/18 19:00 Weight - Most Recent: 69.853 kg I&O - Last 24 Hours: Intake & Output 08/22/18 08/22/18 08/23/18 14:59 22:59 06:59 Intake Total 1410 Output Total 2875 Balance -1465 Lab Results - Last 24 Hours: Laboratory Results - last 24 hr 08/22/18 Range/Units 12:50 WBC 10.99 H (3.98-10.04) K/mm3 RBC 3.17 L (3.98-5.22) M/mm3 Hgb 9.5 L (11.2-15.7) gm/L Hct 29.2 L (34.1-44.9) % MCV 92.1 (79.4-94.8) fl MCH 30.0 (25.6-32.2) pg MCHC 32.5 (32.2-35.5) g/dl RDW Std Deviation 42.8 (36.4-46.3) fL Plt Count 197 (182-369) K/mm3 MPV 9.7 (9.4-12.3) fl Med Orders - Current: Current Medications Diphenhydramine HCl (Benadryl) 25 mg IVPUSH Q6H PRN PRN Reason: Itching or Nausea Docusate Sodium (Colace) 100 mg PO Q12H PRN PRN Reason: Constipation Emollient Ointment (Lansinoh Hpa) 0 gm TOP ASDIRECTED PRN PRN Reason: Sore Nipples Hydromorphone HCl (Dilaudid) 0.5 mg IVPUSH Q15M PRN PRN Reason: Pain (severe 7-10) Ibuprofen (Motrin) 600 mg PO Q6H PRN PRN Reason: mild pain or fever Last Admin: 08/23/18 05:47 Dose: 600 mg Ondansetron HCl (Zofran) 4 mg IVPUSH ONETIME PRN PRN Reason: Nausea/Vomiting Ondansetron HCl (Zofran) 4 mg IV Q8H PRN PRN Reason: Nausea/Vomiting Oxycodone/Acetaminophen (Percocet 325-5 Mg) 2 tab PO Q4H PRN PRN Reason: Pain (moderate 4-6) Discontinued Medications Cefazolin Sodium (Ancef) Confirm Administered Dose 2 gm .ROUTE .[employer]-MED ONE Stop: 08/21/18 18:41 Citric Acid/Sodium Citrate (Bicitra Solution) 30 ml PO ONETIME ONE Stop: 08/21/18 18:31 Last Admin: 08/21/18 18:43 Dose: 30 ml Citric Acid/Sodium Citrate (Bicitra Solution) Confirm Administered Dose 30 ml .ROUTE .[employer] ONE Stop: 08/21/18 18:41 Last Admin: 08/21/18 19:52 Dose: Not Given Diphenhydramine HCl (Benadryl) 25 mg IVPUSH Q6H PRN PRN Reason: pruritis Ephedrine Sulfate (Ephedrine Sulfate) 5 mg IVPUSH ASDIRECTED PRN PRN Reason: Hypotension Ephedrine Sulfate (Ephedrine Sulfate) 5 mg IVPUSH ASDIRECTED PRN PRN Reason: Hypotension Ephedrine Sulfate (Ephedrine Sulfate) 5 mg IVPUSH SEECOMMENT PRN PRN Reason: Other Fentanyl (Sublimaze) 100 mcg EPIDUR Q3H PRN PRN Reason: Pain Last Admin: 08/21/18 15:43 Dose: 100 mcg Fentanyl (Sublimaze) Confirm Administered Dose 100 mcg .ROUTE .[employer]MED ONE Stop: 08/21/18 18:41 Fentanyl (Sublimaze) 50 mcg IVPUSH Q5M PRN PRN Reason: Pain Fentanyl/Bupivacaine HCl (Fentanyl/Bupivacaine/Ns 2 Mcg-0.125% 100 Ml) 100 ml EPIDUR ASDIRECTED [facility] Fentanyl/Bupivacaine HCl (Eickcepw-Ingvj-Yq 2 Mcg/Ml-0.125%) 100 ml EPIDUR ASDIRECTED [facility] Last Admin: 08/21/18 15:45 Dose: 100 ml Haloperidol Lactate (Haldol) 1 mg IVPUSH ONETIME ONE Stop: 08/21/18 19:29 Last Admin: 08/21/18 23:46 Dose: Not Given Lactated Ringer's (Ringers, Lactated) 1,000 mls @ 100 mls/hr IV ASDIRECTED [facility] Last Admin: 08/21/18 17:16 Dose: 100 mls/hr Oxytocin/Lactated Ringer's (Pitocin In Lr 10 Units/1,000 Ml) 10 unit in 1,000 mls @ 500 mls/hr IV .CONTINUOUS [facility] Ampicillin Sodium 2 gm/ Sodium (Chloride) 100 mls @ 200 mls/hr IV ONETIME ONE Stop: 08/21/18 04:29 Last Admin: 08/21/18 04:07 Dose: 200 mls/hr Ampicillin Sodium 1 gm/ Sodium (Chloride) 100 mls @ 200 mls/hr IV Q4H [facility] Last Admin: 08/21/18 23:46 Dose: Not Given Gentamicin Sulfate 350 mg/ (Sodium Chloride) 108.75 mls @ 200 mls/hr IV ONETIME ONE Stop: 08/21/18 18:54 Last Admin: 08/21/18 19:46 Dose: 200 mls/hr Clindamycin Phosphate 900 mg/ (Sodium Chloride) 106 mls @ 100 mls/hr IV ONETIME ONE Stop: 08/21/18 19:30 Last Admin: 08/21/18 18:45 Dose: 100 mls/hr Clindamycin Phosphate 900 mg/ (Sodium Chloride) 106 mls @ 100 mls/hr IV ONETIME ONE Stop: 08/21/18 19:30 Last Admin: 08/21/18 19:56 Dose: Not Given Lactated Ringer's (Ringers, Lactated) Confirm Administered Dose 2,000 mls @ as directed .ROUTE .STK-MED ONE Stop: 08/21/18 18:41 Phenylephrine HCl 1 mg/ Sodium (Chloride) 10.1 mls @ 1 mls/sec IV TITRATE [facility]; Protocol Ampicillin Sodium 2 gm/ Sodium (Chloride) 100 mls @ 200 mls/hr IV Q6H [facility] Last Admin: 08/22/18 17:54 Dose: 200 mls/hr Dextrose/Lactated Ringer's (Dextrose 5%-Lactated Ringers) 1,000 mls @ 125 mls/ hr IV ASDIRECTED [facility] Stop: 08/22/18 05:26 Last Admin: 08/21/18 21:45 Dose: 125 mls/hr Clindamycin Phosphate 900 mg/ (Sodium Chloride) 106 mls @ 100 mls/hr IV Q8H [facility] Last Admin: 08/22/18 04:40 Dose: Not Given Gentamicin Sulfate 350 mg/ (Sodium Chloride) 108.75 mls @ 200 mls/hr IV Q24H [facility] Stop: 08/22/18 20:33 Last Admin: 08/22/18 20:11 Dose: 200 mls/hr Clindamycin Phosphate 900 mg/ (Sodium Chloride) 106 mls @ 106 mls/hr IV Q8H [facility] Last Admin: 08/22/18 04:41 Dose: Not Given Clindamycin Phosphate 900 mg/ (Sodium Chloride) 106 mls @ 100 mls/hr IV Q8H [facility] Clindamycin Phosphate 900 mg/ (Sodium Chloride) 106 mls @ 100 mls/hr IV Q8H [facility] Last Admin: 08/22/18 11:06 Dose: 100 mls/hr Clindamycin Phosphate 900 mg/ (Premix) 50 mls @ 100 mls/hr IV Q8H [facility] Last Admin: 08/22/18 19:01 Dose: 100 mls/hr Ketorolac Tromethamine (Toradol) Confirm Administered Dose 30 mg .ROUTE .STK- MED ONE Stop: 08/21/18 18:41 Ketorolac Tromethamine (Toradol) 30 mg IVPUSH Q6H [facility] Stop: 08/22/18 13:31 Last Admin: 08/22/18 13:46 Dose: 30 mg Lidocaine/Epinephrine (Xylocaine-Mpf 2%-Epi 1:200,000) Confirm Administered Dose 20 ml .ROUTE .STK-MED ONE Stop: 08/21/18 18:41 Meperidine HCl (Demerol) 25 mg IVPUSH ONETIME ONE Stop: 08/21/18 19:55 Last Admin: 08/21/18 20:17 Dose: 25 mg Metoclopramide HCl (Reglan) 10 mg IVPUSH ONETIME ONE Stop: 08/21/18 18:31 Last Admin: 08/21/18 18:43 Dose: 10 mg Metoclopramide HCl (Reglan) Confirm Administered Dose 10 mg .ROUTE .STK-MED ONE Stop: 08/21/18 18:41 Last Admin: 08/21/18 19:52 Dose: Not Given Morphine Sulfate (Duramorph Pf) Confirm Administered Dose 1 mg .ROUTE .STK-MED ONE Stop: 08/21/18 18:42 Nalbuphine HCl (Nubain) 10 mg IVPUSH Q2H PRN PRN Reason: pain Ondansetron HCl (Zofran) 4 mg IVPUSH Q4H PRN PRN Reason: Nausea/Vomiting Ondansetron HCl (Zofran) 4 mg IVPUSH ONETIME PRN PRN Reason: Nausea/Vomiting Ondansetron HCl (Zofran) Confirm Administered Dose 4 mg .ROUTE .STK-MED ONE Stop: 08/21/18 18:41 Oxytocin (Pitocin) Confirm Administered Dose 10 unit .ROUTE .STK-MED ONE Stop: 08/21/18 18:41 Phenylephrine HCl (Phenylephrine In Ns 100 Mcg/Ml) Confirm Administered Dose 1 mg .ROUTE .STK-MED ONE Stop: 08/21/18 18:41 Scopolamine (Transderm-Scop) 1.5 mg TRDERM ONETIME PRN PRN Reason: PONV Sodium Chloride (Saline Flush) 10 ml FLUSH ASDIRECTED PRN PRN Reason: Keep Vein Open - Interaction Disposition, : in Room with Family Interaction: Holding Feeding: Breastfed ; Nursed Well Support Person: - Recovery Exam Fundal Tone: Firm Fundal Level: 1 Fingerbreadths Below Umbilicus Fundal Placement: Midline Lochia Amount: Small Lochia Color: Rubra/Red Perineum Description: Edematous Episiotomy/Laceration: None Bladder Status: Voiding Urinary Elimination: Voided Other Urinary Elimination, : catheter removed at 080 - Exam General: Alert, Oriented, Cooperative Lungs: Clear to Auscultation, Normal Respiratory Effort Cardiovascular: Regular Rate, Regular Rhythm GI/Abdominal Exam: Soft, Non-Tender Extremities: Normal Inspection, Pedal Edema Skin: Warm, Dry, Intact Wound/Incisions: Healing Well, No Drainage - Problem List & Annotations (1) 39 weeks gestation of SNOMED Code(s): 74312936 Code(s): Z3A.39 - 39 WEEKS GESTATION OF Status: Acute Current Visit: Yes (2) History of SNOMED Code(s): 807772709 Code(s): Z98.891 - HISTORY OF UTERINE SCAR FROM PREVIOUS SURGERY Status: Acute Current Visit: Yes (3) Desires (vaginal after ) trial SNOMED Code(s): 113706740, 988545857 Code(s): O34.219 - MATERNAL CARE FOR UNSP TYPE SCAR FROM PREVIOUS DEL Status: Acute Current Visit: Yes (4) Group 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, +RV culture, currently SNOMED Code(s): 0302996511456, 231312324, 6064417161725 Code(s): O99.820 - STREPTOCOCCUS B CARRIER STATE COMPLICATING Status: Acute Current Visit: No (5) Chorioamnionitis SNOMED Code(s): 13267917 Code(s): O41.1290 - CHORIOAMNIONITIS, UNSP TRIMESTER, NOT APPLICABLE OR UNSP Status: Acute Current Visit: Yes (6) S/P section SNOMED Code(s): 795852234, 403112406 Code(s): Z98.891 - HISTORY OF UTERINE SCAR FROM PREVIOUS SURGERY Status: Acute Current Visit: Yes - Problem List Review Problem List Initiated/Reviewed/Updated: Yes - My Orders Last 24 Hours: My Active Orders 08/22/18 20:00 Ibuprofen [Motrin] 600 mg PO Q6H PRN - Assessment Assessment:: 32 y/o G2 now P2002 POD#2 from repeat (high transverse) due to chorioamniotitis/NRFS - Plan Plan:: S/p RCS * Routine care * S/p 24 hours of Amp, Gent, Clinda. Finished last night. Afebrile. Continue to monitor closely * Encourage breast feeding * Discharge home tomorrow
[2018-08-24 02:48] VITALS: BP 109/73
[2018-08-24] MEDS: Ibuprofen 600 MG Tab PO PRN (06:38)
--- NOTE | 2018-08-24 07:00 | PCM.PNPP ---
- General Info Date of Service: 08/24/18 Functional Status: Reports: Pain Controlled, Tolerating Diet, Ambulating, Urinating - Review of Systems General: Reports: No Symptoms Pulmonary: Reports: No Symptoms Cardiovascular: Reports: No Symptoms Gastrointestinal: Reports: Abdominal Pain (managed with medications ) Genitourinary: Reports: No Symptoms Musculoskeletal: Reports: No Symptoms Neurological: Reports: No Symptoms - Patient Data Vital Signs - Most Recent: Last Vital Signs Temp 36.4 C 08/24/18 02:25 Pulse 67 08/24/18 02:25 Resp 14 08/24/18 02:25 BP 109/73 08/24/18 02:25 Pulse Ox 98 08/24/18 02:25 Weight - Most Recent: 69.853 kg I&O - Last 24 Hours: Intake & Output 08/23/18 08/24/18 08/24/18 22:59 06:59 14:59 Intake Total 60 Balance 60 Med Orders - Current: Current Medications Diphenhydramine HCl (Benadryl) 25 mg IVPUSH Q6H PRN PRN Reason: Itching or Nausea Docusate Sodium (Colace) 100 mg PO Q12H PRN PRN Reason: Constipation Emollient Ointment (Lansinoh Hpa) 0 gm TOP ASDIRECTED PRN PRN Reason: Sore Nipples Ibuprofen (Motrin) 600 mg PO Q6H PRN PRN Reason: mild pain or fever Last Admin: 08/24/18 06:38 Dose: 600 mg Ondansetron HCl (Zofran) 4 mg IV Q8H PRN PRN Reason: Nausea/Vomiting Oxycodone/Acetaminophen (Percocet 325-5 Mg) 2 tab PO Q4H PRN PRN Reason: Pain (moderate 4-6) Discontinued Medications Bupivacaine HCl (Sensorcaine-Mpf 0.25%) 10 ml .ROUTE .STK-MED ONE Stop: 08/21/18 22:01 Cefazolin Sodium (Ancef) Confirm Administered Dose 2 gm .ROUTE .STK-MED ONE Stop: 08/21/18 18:41 Citric Acid/Sodium Citrate (Bicitra Solution) 30 ml PO ONETIME ONE Stop: 08/21/18 18:31 Last Admin: 08/21/18 18:43 Dose: 30 ml Citric Acid/Sodium Citrate (Bicitra Solution) Confirm Administered Dose 30 ml .ROUTE .[email or web address] ONE Stop: 08/21/18 18:41 Last Admin: 08/21/18 19:52 Dose: Not Given Diphenhydramine HCl (Benadryl) 25 mg IVPUSH Q6H PRN PRN Reason: pruritis Ephedrine Sulfate (Ephedrine Sulfate) 5 mg IVPUSH ASDIRECTED PRN PRN Reason: Hypotension Ephedrine Sulfate (Ephedrine Sulfate) 5 mg IVPUSH ASDIRECTED PRN PRN Reason: Hypotension Ephedrine Sulfate (Ephedrine Sulfate) 5 mg IVPUSH SEECOMMENT PRN PRN Reason: Other Fentanyl (Sublimaze) 100 mcg EPIDUR Q3H PRN PRN Reason: Pain Last Admin: 08/21/18 15:43 Dose: 100 mcg Fentanyl (Sublimaze) Confirm Administered Dose 100 mcg .ROUTE .[employer] ONE Stop: 08/21/18 18:41 Fentanyl (Sublimaze) 50 mcg IVPUSH Q5M PRN PRN Reason: Pain Fentanyl/Bupivacaine HCl (Fentanyl/Bupivacaine/Ns 2 Mcg-0.125% 100 Ml) 100 ml EPIDUR ASDIRECTED [facility] Fentanyl/Bupivacaine HCl (Tnhyvjom-Tuugh-Zi 2 Mcg/Ml-0.125%) 100 ml EPIDUR ASDIRECTED [facility] Last Admin: 08/21/18 15:45 Dose: 100 ml Haloperidol Lactate (Haldol) 1 mg IVPUSH ONETIME ONE Stop: 08/21/18 19:29 Last Admin: 08/21/18 23:46 Dose: Not Given Hydromorphone HCl (Dilaudid) 0.5 mg IVPUSH Q15M PRN PRN Reason: Pain (severe 7-10) Lactated Ringer's (Ringers, Lactated) 1,000 mls @ 100 mls/hr IV ASDIRECTED [facility] Last Admin: 08/21/18 17:16 Dose: 100 mls/hr Oxytocin/Lactated Ringer's (Pitocin In Lr 10 Units/1,000 Ml) 10 unit in 1,000 mls @ 500 mls/hr IV .CONTINUOUS [facility] Ampicillin Sodium 2 gm/ Sodium (Chloride) 100 mls @ 200 mls/hr IV ONETIME ONE Stop: 08/21/18 04:29 Last Admin: 08/21/18 04:07 Dose: 200 mls/hr Ampicillin Sodium 1 gm/ Sodium (Chloride) 100 mls @ 200 mls/hr IV Q4H [facility] Last Admin: 08/21/18 23:46 Dose: Not Given Gentamicin Sulfate 350 mg/ (Sodium Chloride) 108.75 mls @ 200 mls/hr IV ONETIME ONE Stop: 08/21/18 18:54 Last Admin: 08/21/18 19:46 Dose: 200 mls/hr Clindamycin Phosphate 900 mg/ (Sodium Chloride) 106 mls @ 100 mls/hr IV ONETIME ONE Stop: 08/21/18 19:30 Last Admin: 08/21/18 18:45 Dose: 100 mls/hr Clindamycin Phosphate 900 mg/ (Sodium Chloride) 106 mls @ 100 mls/hr IV ONETIME ONE Stop: 08/21/18 19:30 Last Admin: 08/21/18 19:56 Dose: Not Given Lactated Ringer's (Ringers, Lactated) Confirm Administered Dose 2,000 mls @ as directed .ROUTE .STK-MED ONE Stop: 08/21/18 18:41 Phenylephrine HCl 1 mg/ Sodium (Chloride) 10.1 mls @ 1 mls/sec IV TITRATE [facility]; Protocol Ampicillin Sodium 2 gm/ Sodium (Chloride) 100 mls @ 200 mls/hr IV Q6H [facility] Last Admin: 08/22/18 17:54 Dose: 200 mls/hr Dextrose/Lactated Ringer's (Dextrose 5%-Lactated Ringers) 1,000 mls @ 125 mls/ hr IV ASDIRECTED [facility] Stop: 08/22/18 05:26 Last Admin: 08/21/18 21:45 Dose: 125 mls/hr Clindamycin Phosphate 900 mg/ (Sodium Chloride) 106 mls @ 100 mls/hr IV Q8H [facility] Last Admin: 08/22/18 04:40 Dose: Not Given Gentamicin Sulfate 350 mg/ (Sodium Chloride) 108.75 mls @ 200 mls/hr IV Q24H [facility] Stop: 08/22/18 20:33 Last Admin: 08/22/18 20:11 Dose: 200 mls/hr Clindamycin Phosphate 900 mg/ (Sodium Chloride) 106 mls @ 106 mls/hr IV Q8H [facility] Last Admin: 08/22/18 04:41 Dose: Not Given Clindamycin Phosphate 900 mg/ (Sodium Chloride) 106 mls @ 100 mls/hr IV Q8H [facility] Clindamycin Phosphate 900 mg/ (Sodium Chloride) 106 mls @ 100 mls/hr IV Q8H [facility] Last Admin: 08/22/18 11:06 Dose: 100 mls/hr Clindamycin Phosphate 900 mg/ (Premix) 50 mls @ 100 mls/hr IV Q8H [facility] Last Admin: 08/22/18 19:01 Dose: 100 mls/hr Ketorolac Tromethamine (Toradol) Confirm Administered Dose 30 mg .ROUTE .STK- MED ONE Stop: 08/21/18 18:41 Ketorolac Tromethamine (Toradol) 30 mg IVPUSH Q6H [facility] Stop: 08/22/18 13:31 Last Admin: 08/22/18 13:46 Dose: 30 mg Lidocaine/Epinephrine (Xylocaine-Mpf 2%-Epi 1:200,000) Confirm Administered Dose 20 ml .ROUTE .STK-MED ONE Stop: 08/21/18 18:41 Meperidine HCl (Demerol) 25 mg IVPUSH ONETIME ONE Stop: 08/21/18 19:55 Last Admin: 08/21/18 20:17 Dose: 25 mg Metoclopramide HCl (Reglan) 10 mg IVPUSH ONETIME ONE Stop: 08/21/18 18:31 Last Admin: 08/21/18 18:43 Dose: 10 mg Metoclopramide HCl (Reglan) Confirm Administered Dose 10 mg .ROUTE .STK-MED ONE Stop: 08/21/18 18:41 Last Admin: 08/21/18 19:52 Dose: Not Given Morphine Sulfate (Duramorph Pf) Confirm Administered Dose 1 mg .ROUTE .STK-MED ONE Stop: 08/21/18 18:42 Nalbuphine HCl (Nubain) 10 mg IVPUSH Q2H PRN PRN Reason: pain Ondansetron HCl (Zofran) 4 mg IVPUSH Q4H PRN PRN Reason: Nausea/Vomiting Ondansetron HCl (Zofran) 4 mg IVPUSH ONETIME PRN PRN Reason: Nausea/Vomiting Ondansetron HCl (Zofran) Confirm Administered Dose 4 mg .ROUTE .STK-MED ONE Stop: 08/21/18 18:41 Ondansetron HCl (Zofran) 4 mg IVPUSH ONETIME PRN PRN Reason: Nausea/Vomiting Oxytocin (Pitocin) Confirm Administered Dose 10 unit .ROUTE .STK-MED ONE Stop: 08/21/18 18:41 Phenylephrine HCl (Phenylephrine In Ns 100 Mcg/Ml) Confirm Administered Dose 1 mg .ROUTE .STK-MED ONE Stop: 08/21/18 18:41 Scopolamine (Transderm-Scop) 1.5 mg TRDERM ONETIME PRN PRN Reason: PONV Sodium Chloride (Saline Flush) 10 ml FLUSH ASDIRECTED PRN PRN Reason: Keep Vein Open - Interaction Disposition, : in Room with Family Infant Interaction: Holding Infant Feeding: Breastfed ; Nursed Well Support Person: - Recovery Exam Fundal Tone: Firm Fundal Level: At Umbilicus Fundal Placement: Midline Lochia Amount: Scant Lochia Color: Rubra/Red Perineum Description: Intact, Minimal Bruising/Swelling Episiotomy/Laceration: None Bladder Status: Voiding Urinary Elimination: Voided Other Urinary Elimination, : catheter removed at 080 - Exam General: Alert, Oriented, Cooperative Lungs: Clear to Auscultation, Normal Respiratory Effort Cardiovascular: Regular Rate, Regular Rhythm GI/Abdominal Exam: Soft, Non-Tender Extremities: Normal Inspection Skin: Warm, Dry, Intact Wound/Incisions: Healing Well, No Drainage - Problem List & Annotations (1) 39 weeks gestation of SNOMED Code(s): 14417470 Code(s): Z3A.39 - 39 WEEKS GESTATION OF Status: Acute Current Visit: Yes (2) History of SNOMED Code(s): 542448793 Code(s): Z98.891 - HISTORY OF UTERINE SCAR FROM PREVIOUS SURGERY Status: Acute Current Visit: Yes (3) Desires (vaginal after ) trial SNOMED Code(s): 215853555, 534872348 Code(s): O34.219 - MATERNAL CARE FOR UNSP TYPE SCAR FROM PREVIOUS DEL Status: Acute Current Visit: Yes (4) Group 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, +RV culture, currently SNOMED Code(s): 9508740070125, 734546872, 1676583647082 Code(s): O99.820 - STREPTOCOCCUS B CARRIER STATE COMPLICATING Status: Acute Current Visit: No (5) Chorioamnionitis SNOMED Code(s): 60196075 Code(s): O41.1290 - CHORIOAMNIONITIS, UNSP TRIMESTER, NOT APPLICABLE OR UNSP Status: Acute Current Visit: Yes Qualifiers: Fetus number: single or unspecified fetus Trimester: third trimester Qualified Code(s): O41.1230 - Chorioamnionitis, third trimester, not applicable or unspecified (6) S/P section SNOMED Code(s): 610070645, 715995505 Code(s): Z98.891 - HISTORY OF UTERINE SCAR FROM PREVIOUS SURGERY Status: Acute Current Visit: Yes - Problem List Review Problem List Initiated/Reviewed/Updated: Yes - My Orders Last 24 Hours: My Active Orders 08/24/18 06:59 Ready for Discharge [RC] PER UNIT ROUTINE - Assessment Assessment:: 32 y/o G2 now P2002 POD#3 from repeat (high transverse) due to chorioamniotitis/NRFS - Plan Plan:: S/p RCS * Routine care * Encourage breast feeding * Discharge home today
--- NOTE | 2018-08-24 07:00 | PCM.DCSUM1 ---
Discharge Summary - Discharge Data Discharge Date: 08/24/18 Discharge Disposition: Home, Self-Care 01 Condition: Good - Discharge Diagnosis/Problem(s) (1) 39 weeks gestation of SNOMED Code(s): 84222919 ICD Code: Z3A.39 - 39 WEEKS GESTATION OF Status: Acute Current Visit: Yes (2) History of SNOMED Code(s): 312620992 ICD Code: Z98.891 - HISTORY OF UTERINE SCAR FROM PREVIOUS SURGERY Status: Acute Current Visit: Yes (3) Desires (vaginal after ) trial SNOMED Code(s): 021048013, 074756945 ICD Code: O34.219 - MATERNAL CARE FOR UNSP TYPE SCAR FROM PREVIOUS DEL Status: Acute Current Visit: Yes (4) Group 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, +RV culture, currently SNOMED Code(s): 9572028258467, 201148703, 2660898490842 ICD Code: O99.820 - STREPTOCOCCUS B CARRIER STATE COMPLICATING Status: Acute Current Visit: No (5) Chorioamnionitis SNOMED Code(s): 04346879 ICD Code: O41.1290 - CHORIOAMNIONITIS, UNSP TRIMESTER, NOT APPLICABLE OR UNSP Status: Acute Current Visit: Yes Qualifiers: Fetus number: single or unspecified fetus Trimester: third trimester Qualified Code(s): O41.1230 - Chorioamnionitis, third trimester, not applicable or unspecified (6) S/P section SNOMED Code(s): 554552956, 771697686 ICD Code: Z98.891 - HISTORY OF UTERINE SCAR FROM PREVIOUS SURGERY Status: Acute Current Visit: Yes - Patient Summary/Data Operative Procedure(s) Performed: Repeat - incision site ended up being high transverse with small, 2 cm, "T" extension Complications: None Consults: None Recommended Follow-up Testing/Procedures: Follow up in 1-2 weeks for post op check Hospital Course: 32 y/o at 39 1/7 wks who presented in labor. Had prior history of c- section for IUGR/NRFS. Did desire TOLAC. During course of labor it was noted that likely patient had ruptured several hours prior to admission. Had been treated with antibiotics for GBS positive status, but did develop a fever and significant tachycardia about 15 hours after admission. Amp/Gent started for chorioamnionitis. Counseled on various options at at that time opted to proceed with repeat . notable for being high transverse with small T extension. See operate note for full details. she was maintained on Amp/Gent/Clindamycin for 24 hours. She did well and remained afebrile after delivery. She was discharged home on POD#3 - Patient Instructions Diet: Regular Diet as Tolerated Activity: No Lifting Over 10 Pounds Activity, Other: Pelvic rest for 6 weeks Driving: Do Not Drive (while taking narcotics) Showering/Bathing: May Shower, No Tub Bathing/Swimming Wound/Incision Care: Keep Operative Site/Wound Site Clean and Dry Notify Provider of: Fever, Increased Pain, Swelling and Redness, Drainage, Nausea and/or Vomiting - Discharge Plan *PRESCRIPTION DRUG MONITORING PROGRAM REVIEWED*: Not Applicable *COPY OF PRESCRIPTION DRUG MONITORING REPORT IN PATIENT BRANDON: Not Applicable Prescriptions/Med Rec: Acetaminophen/oxyCODONE [Percocet 325-5 MG] 1 - 2 tab PO Q4H PRN #25 tablet PRN Reason: Pain (Moderate 4-6) Home Medications: Home Meds Vits #93/Iron Fum/FA [ Formula Tablet] 1 each PO DAILY [History] Docusate Sodium [Colace] 100 mg PO Q12H PRN #0 cap 11/20/15 [Rx] Acetaminophen/oxyCODONE [Percocet 325-5 MG] 1 - 2 tab PO Q4H PRN #25 tablet 08/08 [Rx] Ibuprofen [Motrin] 600 mg PO Q6H PRN tablet 08/23/18 [Rx] Patient Handouts: Home Care Instructions for Mom, Tips for a Good Latch Referrals: Megan Oconnor MD [Primary Care Provider] - (1-2 weeks for post op check) - Discharge Summary/Plan Comment DC Time >30 min.: No - Patient Data Vitals - Most Recent: Last Vital Signs Temp 36.4 C 08/24/18 02:25 Pulse 67 08/24/18 02:25 Resp 14 08/24/18 02:25 BP 109/73 08/24/18 02:25 Pulse Ox 98 08/24/18 02:25 Weight - Most Recent: 69.853 kg I&O - Last 24 hours: Intake & Output 08/23/18 08/24/18 08/24/18 22:59 06:59 14:59 Intake Total 60 Balance 60 Med Orders - Current: Current Medications Diphenhydramine HCl (Benadryl) 25 mg IVPUSH Q6H PRN PRN Reason: Itching or Nausea Docusate Sodium (Colace) 100 mg PO Q12H PRN PRN Reason: Constipation Emollient Ointment (Lansinoh Hpa) 0 gm TOP ASDIRECTED PRN PRN Reason: Sore Nipples Ibuprofen (Motrin) 600 mg PO Q6H PRN PRN Reason: mild pain or fever Last Admin: 08/24/18 06:38 Dose: 600 mg Ondansetron HCl (Zofran) 4 mg IV Q8H PRN PRN Reason: Nausea/Vomiting Oxycodone/Acetaminophen (Percocet 325-5 Mg) 2 tab PO Q4H PRN PRN Reason: Pain (moderate 4-6) Discontinued Medications Bupivacaine HCl (Sensorcaine-Mpf 0.25%) 10 ml .ROUTE .STK-MED ONE Stop: 08/21/18 22:01 Cefazolin Sodium (Ancef) Confirm Administered Dose 2 gm .ROUTE .STK-MED ONE Stop: 08/21/18 18:41 Citric Acid/Sodium Citrate (Bicitra Solution) 30 ml PO ONETIME ONE Stop: 08/21/18 18:31 Last Admin: 08/21/18 18:43 Dose: 30 ml Citric Acid/Sodium Citrate (Bicitra Solution) Confirm Administered Dose 30 ml .ROUTE .STK-MED ONE Stop: 08/21/18 18:41 Last Admin: 08/21/18 19:52 Dose: Not Given Diphenhydramine HCl (Benadryl) 25 mg IVPUSH Q6H PRN PRN Reason: pruritis Ephedrine Sulfate (Ephedrine Sulfate) 5 mg IVPUSH ASDIRECTED PRN PRN Reason: Hypotension Ephedrine Sulfate (Ephedrine Sulfate) 5 mg IVPUSH ASDIRECTED PRN PRN Reason: Hypotension Ephedrine Sulfate (Ephedrine Sulfate) 5 mg IVPUSH SEECOMMENT PRN PRN Reason: Other Fentanyl (Sublimaze) 100 mcg EPIDUR Q3H PRN PRN Reason: Pain Last Admin: 08/21/18 15:43 Dose: 100 mcg Fentanyl (Sublimaze) Confirm Administered Dose 100 mcg .ROUTE .STK-MED ONE Stop: 08/21/18 18:41 Fentanyl (Sublimaze) 50 mcg IVPUSH Q5M PRN PRN Reason: Pain Fentanyl/Bupivacaine HCl (Fentanyl/Bupivacaine/Ns 2 Mcg-0.125% 100 Ml) 100 ml EPIDUR ASDIRECTED [facility] Fentanyl/Bupivacaine HCl (Plyrthki-Wtegp-Kb 2 Mcg/Ml-0.125%) 100 ml EPIDUR ASDIRECTED [facility] Last Admin: 08/21/18 15:45 Dose: 100 ml Haloperidol Lactate (Haldol) 1 mg IVPUSH ONETIME ONE Stop: 08/21/18 19:29 Last Admin: 08/21/18 23:46 Dose: Not Given Hydromorphone HCl (Dilaudid) 0.5 mg IVPUSH Q15M PRN PRN Reason: Pain (severe 7-10) Lactated Ringer's (Ringers, Lactated) 1,000 mls @ 100 mls/hr IV ASDIRECTED [facility] Last Admin: 08/21/18 17:16 Dose: 100 mls/hr Oxytocin/Lactated Ringer's (Pitocin In Lr 10 Units/1,000 Ml) 10 unit in 1,000 mls @ 500 mls/hr IV .CONTINUOUS [facility] Ampicillin Sodium 2 gm/ Sodium (Chloride) 100 mls @ 200 mls/hr IV ONETIME ONE Stop: 08/21/18 04:29 Last Admin: 08/21/18 04:07 Dose: 200 mls/hr Ampicillin Sodium 1 gm/ Sodium (Chloride) 100 mls @ 200 mls/hr IV Q4H [facility] Last Admin: 08/21/18 23:46 Dose: Not Given Gentamicin Sulfate 350 mg/ (Sodium Chloride) 108.75 mls @ 200 mls/hr IV ONETIME ONE Stop: 08/21/18 18:54 Last Admin: 08/21/18 19:46 Dose: 200 mls/hr Clindamycin Phosphate 900 mg/ (Sodium Chloride) 106 mls @ 100 mls/hr IV ONETIME ONE Stop: 08/21/18 19:30 Last Admin: 08/21/18 18:45 Dose: 100 mls/hr Clindamycin Phosphate 900 mg/ (Sodium Chloride) 106 mls @ 100 mls/hr IV ONETIME ONE Stop: 08/21/18 19:30 Last Admin: 08/21/18 19:56 Dose: Not Given Lactated Ringer's (Ringers, Lactated) Confirm Administered Dose 2,000 mls @ as directed .ROUTE .STK-MED ONE Stop: 08/21/18 18:41 Phenylephrine HCl 1 mg/ Sodium (Chloride) 10.1 mls @ 1 mls/sec IV TITRATE BECKY; Protocol Ampicillin Sodium 2 gm/ Sodium (Chloride) 100 mls @ 200 mls/hr IV Q6H [facility] Last Admin: 08/22/18 17:54 Dose: 200 mls/hr Dextrose/Lactated Ringer's (Dextrose 5%-Lactated Ringers) 1,000 mls @ 125 mls/ hr IV ASDIRECTED [facility] Stop: 08/22/18 05:26 Last Admin: 08/21/18 21:45 Dose: 125 mls/hr Clindamycin Phosphate 900 mg/ (Sodium Chloride) 106 mls @ 100 mls/hr IV Q8H [facility] Last Admin: 08/22/18 04:40 Dose: Not Given Gentamicin Sulfate 350 mg/ (Sodium Chloride) 108.75 mls @ 200 mls/hr IV Q24H [facility] Stop: 08/22/18 20:33 Last Admin: 08/22/18 20:11 Dose: 200 mls/hr Clindamycin Phosphate 900 mg/ (Sodium Chloride) 106 mls @ 106 mls/hr IV Q8H [facility] Last Admin: 08/22/18 04:41 Dose: Not Given Clindamycin Phosphate 900 mg/ (Sodium Chloride) 106 mls @ 100 mls/hr IV Q8H [facility] Clindamycin Phosphate 900 mg/ (Sodium Chloride) 106 mls @ 100 mls/hr IV Q8H [facility] Last Admin: 08/22/18 11:06 Dose: 100 mls/hr Clindamycin Phosphate 900 mg/ (Premix) 50 mls @ 100 mls/hr IV Q8H [facility] Last Admin: 08/22/18 19:01 Dose: 100 mls/hr Ketorolac Tromethamine (Toradol) Confirm Administered Dose 30 mg .ROUTE .STK- MED ONE Stop: 08/21/18 18:41 Ketorolac Tromethamine (Toradol) 30 mg IVPUSH Q6H [facility] Stop: 08/22/18 13:31 Last Admin: 08/22/18 13:46 Dose: 30 mg Lidocaine/Epinephrine (Xylocaine-Mpf 2%-Epi 1:200,000) Confirm Administered Dose 20 ml .ROUTE .STK-MED ONE Stop: 08/21/18 18:41 Meperidine HCl (Demerol) 25 mg IVPUSH ONETIME ONE Stop: 08/21/18 19:55 Last Admin: 08/21/18 20:17 Dose: 25 mg Metoclopramide HCl (Reglan) 10 mg IVPUSH ONETIME ONE Stop: 08/21/18 18:31 Last Admin: 08/21/18 18:43 Dose: 10 mg Metoclopramide HCl (Reglan) Confirm Administered Dose 10 mg .ROUTE .STK-MED ONE Stop: 08/21/18 18:41 Last Admin: 08/21/18 19:52 Dose: Not Given Morphine Sulfate (Duramorph Pf) Confirm Administered Dose 1 mg .ROUTE .STK-MED ONE Stop: 08/21/18 18:42 Nalbuphine HCl (Nubain) 10 mg IVPUSH Q2H PRN PRN Reason: pain Ondansetron HCl (Zofran) 4 mg IVPUSH Q4H PRN PRN Reason: Nausea/Vomiting Ondansetron HCl (Zofran) 4 mg IVPUSH ONETIME PRN PRN Reason: Nausea/Vomiting Ondansetron HCl (Zofran) Confirm Administered Dose 4 mg .ROUTE .STK-MED ONE Stop: 08/21/18 18:41 Ondansetron HCl (Zofran) 4 mg IVPUSH ONETIME PRN PRN Reason: Nausea/Vomiting Oxytocin (Pitocin) Confirm Administered Dose 10 unit .ROUTE .STK-MED ONE Stop: 08/21/18 18:41 Phenylephrine HCl (Phenylephrine In Ns 100 Mcg/Ml) Confirm Administered Dose 1 mg .ROUTE .STK-MED ONE Stop: 08/21/18 18:41 Scopolamine (Transderm-Scop) 1.5 mg TRDERM ONETIME PRN PRN Reason: PONV Sodium Chloride (Saline Flush) 10 ml FLUSH ASDIRECTED PRN PRN Reason: Keep Vein Open
== END 2018-08-24 10:15 | disposition home or self-care (01) | DRG 540 ==
LOC: JD.OBCHECK 02:51 → JD.OB 02:52 → JD.OBCHECK 03:10 → JD.OB 03:11 → OBSVTOIN 19:18 → JD.OB 19:19
PROVIDERS: ADMIT Obstetrics & Gynecology; ATTEND Obstetrics & Gynecology
PROC: 10D00Z0 Extraction of Products of Conception, High, Open Approach (ICD-10-PCS; principal; 2018-08-21)
PROC: 6A550ZT Pheresis of Cord Blood Stem Cells, Single (ICD-10-PCS; principal; 2018-08-21)
DX: O34.212 Maternal care for vertical scar from previous cesarean delivery (principal); O99.824 Streptococcus B carrier state complicating childbirth; O41.1230 Chorioamnionitis, third trimester, not applicable or unspecified; Z3A.39 39 weeks gestation of pregnancy; Z37.0 Single live birth; N85.8 Other specified noninflammatory disorders of uterus; O76 Abnormality in fetal heart rate and rhythm complicating labor and delivery
CPT/HCPCS: 01967; 01968; 36415; 36600; 51702; 59025; 82803; 85025; 85027; 86592; 86850; 86900; 86901; 94762; A9270-GY; J0290; J0690; J1580; J1885; J2175; J2274; J2370; J2405; J2590; J2765; J3010; J3490; J7030; J7042; J7120

== ENCOUNTER 2023-10-27 04:59 | Inpatient (IN) | payer BC ==
[2023-10-27] MEDS ORDERED: Oxytocin/Lactated Ringers 30 UNIT/500 ML BAG IV SCH (05:00)
[2023-10-27] MEDS: Lactated Ringers 1,000 ML IV SCH (05:36)
[2023-10-27 05:43] LABS: BASOPHILS PERCENT AUTO 0.3 % (0.0-1.0); EOSINOPHILS ABSOLUTE AUTO 0.1 K/mm3 (0.0-0.4); EOSINOPHILS PERCENT AUTO 0.7 % (0.0-6.0); HEMATOCRIT 35.7 % (37.0-47.0); HEMOGLOBIN 12.3 gm/dl (12.0-16.0); IMMATURE GRAN ABSOLUTE AUTO 0.03 K/mm3 (0.00-0.05); IMMATURE GRAN PERCENT AUTO 0.4 % (0.0-0.4); LYMPHOCYTES ABSOLUTE AUTO 1.9 K/mm3 (1.0-4.8); LYMPHOCYTES PERCENT AUTO 25.1 % (24.0-44.0); MEAN CORPUSCULAR HEMOGLOBIN 31.5 pg (28.0-32.0); MEAN CORPUSCULAR HGB CONC 34.5 g/dl (32.0-36.0); MEAN CORPUSCULAR VOLUME 91.3 fl (83.0-99.0); MEAN PLATELET VOLUME 10.3 fl (9.4-12.3); MONOCYTES ABSOLUTE AUTO 0.5 K/mm3 (0.0-0.8); MONOCYTES PERCENT AUTO 6.4 % (0.0-8.0); NEUTROPHILS PERCENT AUTO 67.1 % (41.0-71.0); PLATELET COUNT,PLT 253 K/mm3 (150-400); RED BLOOD CELL COUNT 3.91 M/mm3 (4.10-5.30); WHITE BLOOD CELL COUNT,WBC 7.37 K/mm3 (3.9-11.3)
[2023-10-27] MEDS: Metoclopramide 10 MG/2 ML SDV IVPUSH ONE (06:40)
[2023-10-27] MEDS: ceFAZolin 2 GM in Sodium Chloride 0.9% 50 ML IV ONE (06:40)
[2023-10-27] MEDS: Citric Acid/Sodium Citrate Solution 30 ML Cup PO ONE (06:40)
[2023-10-27] MEDS ORDERED: Ketorolac 30 MG/ML SDV ONE (07:03)
[2023-10-27] MEDS ORDERED: Ondansetron 4 MG/2 ML SDV ONE (07:03)
[2023-10-27] MEDS ORDERED: Morphine PF 10 MG/10 ML SDV ONE (07:03)
[2023-10-27] MEDS ORDERED: Lactated Ringers 1,000 ML ONE (07:03)
[2023-10-27] MEDS ORDERED: ceFAZolin 2 GM Vial ONE (07:06)
[2023-10-27] MEDS ORDERED: Meperidine 50 MG/ML Vial IVPUSH PRN (07:19)
[2023-10-27] MEDS ORDERED: Ondansetron 4 MG/2 ML SDV IVPUSH PRN (07:19)
[2023-10-27] MEDS ORDERED: diphenhydrAMINE 50 MG/ML SDV IVPUSH PRN ×2 (07:19→10:20)
[2023-10-27] MEDS ORDERED: fentaNYL 100 MCG/2 ML SDV IVPUSH PRN (07:19)
[2023-10-27] MEDS ORDERED: Phenylephrine 1% 10 MG/ML SDV ONE (07:44)
[2023-10-27] MEDS ORDERED: Dexamethasone 4 MG/ML SDV ONE (08:09)
[2023-10-27] MEDS ORDERED: Ondansetron 4 MG/2 ML SDV IV PRN (10:20)
[2023-10-27] MEDS ORDERED: Acetaminophen/oxyCODONE 325-5 MG Tab PO PRN ×2 (10:20)
[2023-10-27] MEDS ORDERED: Naloxone 0.4 MG/ML SDV IVPUSH PRN (10:20)
[2023-10-27] MEDS ORDERED: Sodium Chloride 0.9% 10 ML Syringe FLUSH PRN (10:20)
[2023-10-27] MEDS ORDERED: ePHEDrine 50 MG/ML SDV IVPUSH PRN (10:20)
[2023-10-27] MEDS: Dextrose 5%-Lactated Ringers 1,000 ML IV SCH (12:43)
[2023-10-27] MEDS: Ketorolac 30 MG/ML SDV IVPUSH SCH (14:26)
[2023-10-28] MEDS: Ketorolac 30 MG/ML SDV IVPUSH SCH (06:27)
[2023-10-28 07:02] LABS: HEMATOCRIT 30.9 % (37.0-47.0); MEAN CORPUSCULAR HEMOGLOBIN 31.6 pg (28.0-32.0); MEAN CORPUSCULAR VOLUME 93.1 fl (83.0-99.0); MEAN PLATELET VOLUME 10.3 fl (9.4-12.3); PLATELET COUNT,PLT 189 K/mm3 (150-400); RED BLOOD CELL COUNT 3.32 M/mm3 (4.10-5.30)
[2023-10-28 07:04] LABS: HEMOGLOBIN 10.5 gm/dl (12.0-16.0)
[2023-10-28] MEDS ORDERED: Ibuprofen 600 MG Tab PO SCH (08:30)
[2023-10-28] MEDS: Ibuprofen 600 MG Tab PO SCH (12:29)
[2023-10-28] MEDS: Simethicone 80 MG Tab.Chew PO PRN (21:28)
[2023-10-28 23:59] VITALS: BP 130/85; PULSE 85
== END 2023-10-28 23:58 | disposition home or self-care (01) | DRG 540 ==
LOC: JD.OB 04:59
PROVIDERS: ADMIT Obstetrics & Gynecology; ATTEND Obstetrics & Gynecology
PROC: 10D00Z1 Extraction of Products of Conception, Low, Open Approach (ICD-10-PCS; principal; 2023-10-27 08:00)
DX: O34.211 Maternal care for low transverse scar from previous cesarean delivery (principal); Z3A.37 37 weeks gestation of pregnancy; Z37.0 Single live birth; Z98.890 Other specified postprocedural states
CPT/HCPCS: 36415; 59025; 85025; 85027; 86592; 86850; 86900; 86901; 94762; A9270-GY; J0690; J1100; J1885; J2274; J2371; J2405; J2765; J3490; J7120; J7121; J7999